=== PATIENT | female | born 1955 | race African-American/Black ===

== ENCOUNTER 2017-09-27 13:37 | Inpatient (IN) | payer MEDICAID ==
[~2017-09-27] VITALS: Ht 160 cm; Wt 76.7 kg
[2017-09-27 13:37] VITALS: BP 112/52
--- NOTE | 2017-09-27 13:54 | Emergency Room Report ---
History of Present Illness General Chief Complaint: Chest Pain Source: Patient Present Illness HPI patient is a 62-year-old female who presents complaining of chest pain for the last week. The pain has been intermittent since 7 days but constant for the last 2 days Pain appears worsewith movement or deep inspiration or pressing on the left side of the chest. . It is associated with shortness of breath and feeling weak especially with ambulation. The patient denies prior cardiac history but states she has been admitted to [facility] for chest pain in the past. Allergies: Coded Allergies: CYCLOBENZAPRINE (Unverified Allergy, Unknown, 09/27/17) MEPERIDINE (Unverified Allergy, Unknown, 09/27/17) PROCHLORPERAZINE (Unverified Allergy, Unknown, 09/27/17) Patient History Past Medical History: see triage record, DM, HTN Pertinent Family History: none Social History: Reports: smoking Last Menstrual Period: n/a Nursing Documentation-PMH Hx Cardiac Problems: Yes - ANGINA Hx Cancer: Yes - Breast Cancer Review of Systems Constitutional: Denies: no symptoms, see HPI, chills, sweats, fever, malaise, weakness, other Eye: Denies: no symptoms, see HPI, eye pain, blurred vision, tearing, double vision, nose pain, nose congestion, acuity changes, discharge, other ENT: Denies: no symptoms, see HPI, ear pain, ear discharge, nose pain, nose congestion, throat pain, throat swelling, mouth pain, hearing loss, nasal discharge, other Respiratory: Reports: see HPI, shortness of breath; Denies: no symptoms, cough , orthopnea, stridor, wheezing, MENDOZA, sputum, other Cardiovascular: Reports: see HPI, chest pain Gastrointestinal: Denies: no symptoms, see HPI, abdominal pain, constipation, diarrhea, nausea, vomiting, melena, hematemesis, other Genitourinary: Denies: no symptoms, see HPI, discharge, dysuria, frequency, hematuria, pain, retention, incontinence, urgency, vag bleed/dc, other Musculoskeletal: Denies: no symptoms, see HPI, back pain, gout, joint pain, joint swelling, muscle pain, muscle stiffness, other Skin: Denies: no symptoms, see HPI, rash, change in color, change in hair/nails , dryness, lesions, other Psychiatric: Denies: no symptoms, see HPI, prior hx, anxiety, depressed feelings, emotional problems, SI, HI, hallucinations, other Neurological: Denies: no symptoms, see HPI, headache, numbness, paresthesia, seizure, tingling, tremors, focal weakness, syncope, dizziness, other Endocrine: Denies: no symptoms, see HPI, excessive sweating, flushing, intolerance to temperature, increased thirst, increased urine, unexplained weight loss, other Physical Exam Vital Signs Date Time Temp Pulse Resp B/P (MAP) Pulse Ox O2 Delivery O2 Flow Rate FiO2 09/27/17 13:24 98.7 70 16 114/62 100 Room Air 98.8 Sp02 EP Interpretation: reviewed, normal General Appearance: no apparent distress, alert, GCS 15, non-toxic Head: normocephalic, atraumatic Eyes: bilateral eye normal inspection, bilateral eye PERRL ENT: hearing grossly normal, normal pharynx, no angioedema, normal voice Neck: full range of motion, supple/symm/no masses Respiratory: chest non-tender, lungs clear, normal breath sounds, speaking full sentences Cardiovascular #1: regular rate, rhythm, no edema Cardiovascular #2: 2+ carotid (R), 2+ carotid (L), 2+ radial (R), 2+ radial (L) , 2+ dorsalis pedis (R), 2+ dorsalis pedis (L) Gastrointestinal: normal bowel sounds, non tender, soft, non-distended, no guarding, no rebound Musculoskeletal: back normal, gait/station normal, normal range of motion, non- tender, calf tenderness Neurologic: alert, oriented x3, responsive, motor strength/tone normal, sensory intact, speech normal Psychiatric: judgement/insight normal, memory normal, mood/affect normal, no suicidal/homicidal ideation Skin: normal color, no rash, warm/dry, well hydrated Medical Decision Making Reaction to Intervention: Improved Diagnostic Impression: Primary Impression: Chest pain with moderate risk of acute coronary syndrome ER Course Patient is a 62-year-old female complaining of chest pain. The patient's workup in the emergency department including EKG, chest x-ray, CT angios chest, laboratory studies are unremarkable however the patient has multiple risk factors for cardiac disease and will require admission to the hospital for cardiac rule out. Laboratory Tests Test 09/27/17 13:46 7/9/18 14:00 White Blood Count 4.5 K/UL (4.8-10.8) L Red Blood Count 3.89 M/UL (4.20-5.40) L Hemoglobin 10.8 G/DL (12.0-16.0) L Hematocrit 34.5 % (37.0-47.0) L Mean Corpuscular Volume 89 FL (80-99) Mean Corpuscular Hemoglobin 27.8 PG (27.0-31.0) Mean Corpuscular Hemoglobin Concent 31.4 G/DL (32.0-36.0) L Red Cell Distribution Width 12.3 % (11.6-14.8) Platelet Count 321 K/UL (150-450) Mean Platelet Volume 5.8 FL (6.5-10.1) L Neutrophils (%) (Auto) 45.6 % (45.0-75.0) Lymphocytes (%) (Auto) 40.1 % (20.0-45.0) Monocytes (%) (Auto) 10.1 % (1.0-10.0) H Eosinophils (%) (Auto) 2.5 % (0.0-3.0) Basophils (%) (Auto) 1.7 % (0.0-2.0) D-Dimer 2.34 mg/L FEU (0.00-0.49) H Sodium Level 143 MMOL/L (136-145) Potassium Level 3.5 MMOL/L (3.5-5.1) Chloride Level 106 MMOL/L (98-107) Carbon Dioxide Level 25 MMOL/L (21-32) Anion Gap 12 mmol/L (5-15) Blood Urea Nitrogen 11 mg/dL (7-18) Creatinine 0.8 MG/DL (0.55-1.30) Estimate Glomerular Filtration Rate > 60 mL/min (>60) Glucose Level 94 MG/DL (74-106) Calcium Level 9.2 MG/DL (8.5-10.1) Total Bilirubin 0.3 MG/DL (0.2-1.0) Aspartate Amino Transferase (AST) 30 U/L (15-37) Alanine Aminotransferase (ALT) 33 U/L (12-78) Alkaline Phosphatase 66 U/L (46-116) Total Creatine Kinase 565 U/L (26-308) H Creatine Kinase MB 2.5 NG/ML (0.0-3.6) Creatine Kinase MB Relative Index 0.4 Troponin I 0.000 ng/mL (0.000-0.056) Total Protein 7.1 G/DL (6.4-8.2) Albumin 3.2 G/DL (3.4-5.0) L Globulin 3.9 g/dL Albumin/Globulin Ratio 0.8 (1.0-2.7) L Lipase 166 U/L (73-393) EKG Diagnostic Results Rhythm: NSR ST Segments: no acute changes Other Impression Nl axis no acute st abnormalities. artifact. EKG repeat at 1341 (#2) shows NSR, rate 67, Nl axis, no acute st/t wave changes Last Vital Signs Date Time Temp Pulse Resp B/P (MAP) Pulse Ox O2 Delivery O2 Flow Rate FiO2 09/27/17 13:24 98.7 70 16 114/62 100 Room Air 98.8 Disposition: ADMITTED INPATIENT Condition: Stable NEHEMIAH GLEASON Sep 27, 2017 13:54
[2017-09-27] MEDS: Nitroglycerin Subl 0.4mg tab SL PRN ×3 (14:00→14:18)
[2017-09-27 14:15] LABS: BASOPHILS % (AUTO) 1.7 % (0.0-2.0); EOSINOPHILS % (AUTO) 2.5 % (0.0-3.0); HEMATOCRIT 34.5 % (37.0-47.0); HEMOGLOBIN 10.8 G/DL (12.0-16.0); LYMPHOCYTES % (AUTO) 40.1 % (20.0-45.0); MEAN CORPUSCULAR VOLUME 89 FL (80-99); MONOCYTES % (AUTO) 10.1 % (1.0-10.0); NEUTROPHILS % (AUTO) 45.6 % (45.0-75.0); PLATELET COUNT 321 K/UL (150-450); RED BLOOD COUNT 3.89 M/UL (4.20-5.40); RED CELL DISTRIBUTION WIDTH 12.3 % (11.6-14.8); WHITE BLOOD COUNT 4.5 K/UL (4.8-10.8)
[2017-09-27 14:46] LABS: ANION GAP 12 mmol/L (5-15); BLOOD UREA NITROGEN 11 mg/dL (7-18); CALCIUM 9.2 MG/DL (8.5-10.1); CARBON DIOXIDE 25 MMOL/L (21-32); CHLORIDE 106 MMOL/L (98-107); CREATININE 0.8 MG/DL (0.55-1.30); POTASSIUM 3.5 MMOL/L (3.5-5.1); SODIUM 143 MMOL/L (136-145)
--- NOTE | 2017-09-27 15:03 | Diagnostic Imaging Report ---
Indication: Chest pain Comparison: None A single view chest radiograph was obtained. Findings: Cardiomediastinal appearance is within normal limits for age. Surgical clips projected over the left chest. Pulmonary vascularity is appropriate. The diaphragmatic contour is smooth and costophrenic angles are sharp. No pleural effusions are identified. The bones are unremarkable. Impression: No acute findings
[2017-09-27] MEDS ORDERED: Morphine Sulfate 4mg/ml Inj ONE (15:10)
[2017-09-27 15:12] LABS: ALANINE AMINOTRANSFERASE 33 U/L (12-78); ALBUMIN 3.2 G/DL (3.4-5.0); ALBUMIN/GLOBULIN RATIO 0.8 (1.0-2.7); ALKALINE PHOSPHATASE 66 U/L (46-116); ASPARTATE AMINO TRANSFERASE 30 U/L (15-37); BILIRUBIN,TOTAL 0.3 MG/DL (0.2-1.0); CKMB 2.5 NG/ML (0.0-3.6); CREATINE KINASE 565 U/L (26-308)
[2017-09-27 15:42] VITALS: BP 109/59
[2017-09-27] MEDS ORDERED: Morphine Sulfate 4mg/ml Inj IVP ONE ×2 (15:45→17:15)
[2017-09-27] MEDS ORDERED: Isovue-370 150ml vial INJ PRN (16:15)
[2017-09-27 17:10] VITALS: BP 104/55
[2017-09-27 20:00] VITALS: BP 111/51
[2017-09-27] MEDS ORDERED: SEROQUEL300 MG ORAL (20:53)
[2017-09-27] MEDS ORDERED: Nitroglycerin Subl 0.4mg tab SL PRN (21:45)
[2017-09-27] MEDS ORDERED: Heparin 5000 units/ml inj SUBQ SCH (22:00)
[2017-09-27] MEDS ORDERED: Lexiscan 0.4mg/5ml syringe IV ONE (22:00)
[2017-09-28] VITALS: BP 115/56
--- NOTE | 2017-09-28 03:45 | History and Physical Report ---
DATE OF ADMISSION: 09/27/2017 CHIEF COMPLAINT/REASON FOR HOSPITALIZATION: The patient is admitted for chest pain, leg pain, generalized malaise. HISTORY OF PRESENT ILLNESS: The patient has a history of breast cancer status post left-sided lumpectomy in November 2014 or 2015 followed by radiation and hormonal therapy. There is a history of apparently psychiatric problem, questionable CVA, and prior hospitalization at [facility] for chest pain, but she had no angiography at that time. The patient states her left leg gets stiff and numb. She has chest pain and some left axilla pain. She is a poor historian. PAST SURGICAL HISTORY: Prior surgery includes breast lumpectomy, liver laceration in 1996, left tibia in 2002 with left arm laceration, and tonsillectomy. HABITS: She smokes cigarettes less than half a pack a day. Alcohol occasional. Drugs none. ALLERGIES: She states she is allergic to Compazine, Geodon, Flagyl, Flexeril, Abilify, . PAST MEDICAL HISTORY: She was told she had a CVA with distorted mouth in the past. CURRENT MEDICATIONS: The patient cannot give an adequate list, but they do include apparently some psychotropic medications. SYSTEM REVIEW: HEENT: The patient's hearing is good. ENDOCRINE: Apparently, there is a history of diabetes. No known thyroid disease. PULMONARY: No chronic cough or asthma. She is an active smoker. CARDIAC: See history of present illness. GASTROINTESTINAL: There is some gastritis. No hematochezia or melena. GENITOURINARY: No dysuria or hematuria. NEUROLOGIC: History of a prior CVA according to the patient. PHYSICAL EXAMINATION: GENERAL: The patient is alert lady, in no acute distress. VITAL SIGNS: BMI is 23, temperature 98.7, pulse 59, respirations of 18, and blood pressure 104/55. HEENT: Sclerae are nonicteric. Ocular motions intact in all directions. Oral mucosa moist. NECK: No adenopathy or thyroid enlargement. LUNGS: Clear. HEART: Regular rate and rhythm. ABDOMEN: Soft without organomegaly or masses. EXTREMITIES: No edema, cyanosis, or clubbing. NEUROLOGIC: She is alert and oriented with clear speech. Ocular motions are intact in all directions. Smile symmetric. Tongue is midline. She moves all extremities. PERTINENT LABORATORY DATA: Troponin of 0, total CK of 565. Electrolytes normal except for potassium of 3.5, hemoglobin is 10.8. IMPRESSION: 1. Chest pain, atypical. 2. History of breast cancer. I did a breast exam and axillary exam negative. 3. Left leg stiffness and numbness. 4. History of prior stroke. 5. Anemia. 6. History of taking psychotropic medications. PLAN: We will put her on anti-ischemic regimen. Try to get records of her prior medications. Get serial laboratory work to assess all of the above problems and make further recommendations after data is available. Buzz Arevalo M.D. DR: TAI JOB#: [id number] CC:
[2017-09-28 04:00] VITALS: BP 110/62
[2017-09-28 04:53] LABS: BASOPHILS % (AUTO) 1.1 % (0.0-2.0); EOSINOPHILS % (AUTO) 3.1 % (0.0-3.0); HEMATOCRIT 30.6 % (37.0-47.0); HEMOGLOBIN 9.9 G/DL (12.0-16.0); LYMPHOCYTES % (AUTO) 47.5 % (20.0-45.0); MEAN CORPUSCULAR VOLUME 90 FL (80-99); MONOCYTES % (AUTO) 10.4 % (1.0-10.0); NEUTROPHILS % (AUTO) 37.8 % (45.0-75.0); PLATELET COUNT 285 K/UL (150-450); RED BLOOD COUNT 3.41 M/UL (4.20-5.40); RED CELL DISTRIBUTION WIDTH 12.5 % (11.6-14.8); WHITE BLOOD COUNT 3.7 K/UL (4.8-10.8)
[2017-09-28 05:22] LABS: ALANINE AMINOTRANSFERASE 33 U/L (12-78); ALBUMIN 2.9 G/DL (3.4-5.0); ALBUMIN/GLOBULIN RATIO 0.8 (1.0-2.7); ALKALINE PHOSPHATASE 58 U/L (46-116); ANION GAP 8 mmol/L (5-15); ASPARTATE AMINO TRANSFERASE 20 U/L (15-37); BILIRUBIN,TOTAL 0.2 MG/DL (0.2-1.0); BLOOD UREA NITROGEN 14 mg/dL (7-18); CARBON DIOXIDE 29 MMOL/L (21-32); CHLORIDE 106 MMOL/L (98-107); CREATININE 0.8 MG/DL (0.55-1.30); POTASSIUM 3.9 MMOL/L (3.5-5.1); SODIUM 143 MMOL/L (136-145)
[2017-09-28] MEDS: HydrALAZINE 25mg tab ORAL SCH ×4 (05:44→16:48)
[2017-09-28 08:00] VITALS: BP 121/61
[2017-09-28] MEDS: Heparin 5000 units/ml inj SUBQ SCH ×2 (08:15→21:00)
--- NOTE | 2017-09-28 08:53 | Diagnostic Imaging Report ---
Indication: Chest pain, shortness of breath Technique: CT pulmonary angiogram performed utilizing automated exposure control with intravenous contrast. Axial, sagittal and coronal reconstructions were obtained. 3-D volumetric reconstructions were also performed. CT dose: Total DLP 788.41 mGycm; CTDI vol 23.9 mGy Comparison: None Findings: There is adequate opacification of the pulmonary arteries.. No evidence of pulmonary embolism. Main pulmonary artery normal in caliber. Limited evaluation of the ascending aorta due to cardiac motion however grossly unremarkable. No evidence of thoracic aortic aneurysm or definite evidence of aortic dissection. Visualized portions of the abdominal aorta are normal in caliber. Heart is mildly enlarged. No pericardial effusion. No pathologically enlarged mediastinal adenopathy. Thyroid unremarkable. There is mild atelectasis at the dependent aspects of the lungs. Mild linear atelectasis versus scarring noted in the middle lobe. There is no pleural effusion or pneumothorax. No focal consolidation to suggest pneumonia. There are multilevel degenerative changes of the spine. No acute osseous abnormality is seen. There is asymmetry of the breast tissues with multiple clips in the left breast. Correlate with surgical history. No definite mass lesion within the breasts is appreciated on CT. There is a small hiatal hernia. Imaged upper abdomen grossly unremarkable. IMPRESSION: * No evidence for pulmonary embolism. * Evaluation of the ascending aorta limited due to motion artifact. Within this limitation, aorta is grossly unremarkable. * Mild cardiomegaly. * Small hiatal hernia. * Mild dependent atelectasis in the lung bases and linear scarring or atelectasis in the middle lobe. * Asymmetry of the breast tissues with multiple clips noted in the left breast without definite mass appreciated on CT. Correlation with surgical history and most recent mammogram recommended. This corresponds with the statrad preliminary report, with minor discrepancy. Study obtained via the emergency department however patient admitted to the hospital at time of dictation of the final report. The CT scanner at [facility] is accredited by the [employer] and the scans are performed using protocols designed to limit radiation exposure to as low as reasonably achievable to attain images of sufficient resolution adequate for diagnostic evaluation.
[2017-09-28] MEDS ORDERED: Aspirin Baby 81mg ORAL SCH (09:00)
[2017-09-28] MEDS ORDERED: QUEtiapine 200mg tab ORAL SCH (09:00)
[2017-09-28 12:00] VITALS: BP 115/49
--- NOTE | 2017-09-28 12:27 | General Progress Note ---
Assessment/Plan Problem List: (1) Bipolar 1 disorder ICD Codes: F31.9 - Bipolar disorder, unspecified SNOMED: 181448699 (2) anemia (3) Chest pain with moderate risk of acute coronary syndrome ICD Codes: R07.9 - Chest pain, unspecified SNOMED: 30316692 Assessment/Plan stress test, dc if neg Subjective Constitutional: Reports: weakness HEENT: Reports: no symptoms Cardiovascular: Reports: no symptoms Respiratory: Reports: no symptoms Gastrointestinal/Abdominal: Reports: no symptoms Genitourinary: Reports: no symptoms Neurologic/Psychiatric: Reports: headache Endocrine: Reports: no symptoms Hematologic/Lymphatic: Reports: no symptoms Allergies: Coded Allergies: CYCLOBENZAPRINE (Unverified Allergy, Unknown, 09/27/17) MEPERIDINE (Unverified Allergy, Unknown, 09/27/17) PROCHLORPERAZINE (Unverified Allergy, Unknown, 09/27/17) Objective Last 24 Hour Vital Signs Date Time Temp Pulse Resp B/P (MAP) Pulse Ox O2 Delivery O2 Flow Rate FiO2 09/28/17 12:00 97.9 56 21 115/49 (71) 96 97.9 09/28/17 12:00 135/78 09/28/17 09:10 98.0 09/28/17 09:00 Room Air 09/28/17 08:00 58 09/28/17 08:00 98.0 54 21 121/61 (81) 96 98.0 09/28/17 05:44 110/62 09/28/17 04:00 97.7 53 16 110/62 (78) 96 97.7 09/28/17 04:00 48 09/28/17 01:42 Room Air 09/28/17 00:00 97.5 59 16 115/56 (75) 96 97.5 09/28/17 00:00 115/56 09/28/17 00:00 48 09/27/17 20:00 97.7 56 17 111/51 (71) 97 97.7 09/27/17 19:15 98.2 58 20 106/59 97 Room Air 209.7 09/27/17 17:18 98.7 09/27/17 17:10 98.5 59 18 104/55 98 Room Air 98.5 09/27/17 16:08 98.7 09/27/17 16:08 98.7 7/9/18 15:42 98.7 58 21 109/59 95 Room Air 98.7 09/27/17 15:38 98.8 09/27/17 14:18 103/49 09/27/17 14:07 112/52 09/27/17 14:00 114/62 09/27/17 13:37 70 16 Room Air 09/27/17 13:37 98.8 66 22 112/52 100 Room Air 98.8 09/27/17 13:24 98.7 70 16 114/62 100 Room Air 98.8 Intake and Output 09/27/17 09/28/17 19:00 07:00 Intake Total 0 ml Balance 0 ml Intake Oral 0 ml # Voids 2 Laboratory Tests 09/27/17 13:46: White Blood Count 4.5L, Red Blood Count 3.89L, Hemoglobin 10.8L, Hematocrit 34.5L, Mean Corpuscular Volume 89, Mean Corpuscular Hemoglobin 27.8, Mean Corpuscular Hemoglobin Concent 31.4L, Red Cell Distribution Width 12.3, Platelet Count 321, Mean Platelet Volume 5.8L, Neutrophils (%) (Auto) 45.6, Lymphocytes (%) (Auto) 40.1, Monocytes (%) (Auto) 10.1H, Eosinophils (%) (Auto) 2.5, Basophils (%) (Auto) 1.7 09/27/17 14:00: D-Dimer 2.34H, Sodium Level 143, Potassium Level 3.5, Chloride Level 106, Carbon Dioxide Level 25, Anion Gap 12, Blood Urea Nitrogen 11, Creatinine 0.8, Estimat Glomerular Filtration Rate > 60, Glucose Level 94, Calcium Level 9.2, Total Bilirubin 0.3, Aspartate Amino Transf (AST/SGOT) 30, Alanine Aminotransferase (ALT/SGPT) 33, Alkaline Phosphatase 66, Total Creatine Kinase 565H, Creatine Kinase MB 2.5, Creatine Kinase MB Relative Index 0.4, Troponin I 0.000, Total Protein 7.1, Albumin 3.2L, Globulin 3.9, Albumin/Globulin Ratio 0.8L, Lipase 166 09/28/17 04:10: White Blood Count 3.7L, Red Blood Count 3.41L, Hemoglobin 9.9L, Hematocrit 30.6L , Mean Corpuscular Volume 90, Mean Corpuscular Hemoglobin 29.1, Mean Corpuscular Hemoglobin Concent 32.5, Red Cell Distribution Width 12.5, Platelet Count 285, Mean Platelet Volume 6.0L, Neutrophils (%) (Auto) 37.8L, Lymphocytes (%) (Auto) 47.5H, Monocytes (%) (Auto) 10.4H, Eosinophils (%) (Auto) 3.1H, Basophils (%) (Auto) 1.1, Sodium Level 143, Potassium Level 3.9, Chloride Level 106, Carbon Dioxide Level 29, Anion Gap 8, Blood Urea Nitrogen 14, Creatinine 0.8, Estimat Glomerular Filtration Rate > 60, Glucose Level 100, Calcium Level 9.0, Total Bilirubin 0.2, Aspartate Amino Transf (AST/SGOT) 20, Alanine Aminotransferase (ALT/SGPT) 33, Alkaline Phosphatase 58, Troponin I 0.000, Total Protein 6.4, Albumin 2.9L, Globulin 3.5, Albumin/Globulin Ratio 0.8L, Thyroid Stimulating Hormone (TSH) 1.006 Height (Feet): 5 Height (Inches): 3.00 Weight (Pounds): 169 General Appearance: WD/WN, no apparent distress EENT: normal ENT inspection Neck: non-tender Cardiovascular: normal rate Respiratory/Chest: lungs clear Abdomen: non tender Edema: no edema noted Arm (L), no edema noted Arm (R), no edema noted Leg (L), no edema noted Leg (R), no edema noted Pedal (L), no edema noted Pedal (R), no edema noted Generalized ARETHA BANKS Sep 28, 2017 12:27
--- NOTE | 2017-09-28 14:11 | Cardiology Report ---
APPROVED REPORT EKG Measurement Heart [id number] Normal sinus rhythm with sinus arrhythmia Nonspecific ST and T wave abnormality Abnormal ECG
[2017-09-28 16:00] VITALS: BP 106/52
--- NOTE | 2017-09-28 16:03 | Diagnostic Imaging Report ---
Indications: Chest pain Technique: See cardiology report for details of LexiScan stress testing. During LexiScan infusion, IV administration 31.9 mCi 99 M technetium Myoview. SPECT and planar images obtained. SPECT images gated to 8 phases of the cardiac cycle were also obtained, and reformatted into cine images for evaluation of ejection fraction. Subsequently, resting images obtained using IV administration 10.6 mCi 99 M technetium Myoview. Comparison:none Findings: Baseline heart rate: 50 bpm. End infusion heart rate: 63 bpm. Baseline blood pressure: 125/69. End infusion blood pressure: 128/72. Infusion duration: 10 seconds Symptoms: Headache, nausea, flushing, chest pain, tingling the left side. Maximum ST change: None. Clinical response to pharmacologic stress: Nondiagnostic. Electrocardiographic response to pharmacologic stress: Nonischemic. Myocardial perfusion imaging demonstrates no fixed or reversible perfusion defect. Ejection fraction of approximately 67%. IMPRESSION: No fixed or reversible perfusion defect. Ejection fraction of approximately 67%.
[2017-09-28 16:48] VITALS: BP 133/62
[2017-09-28] MEDS ORDERED: Atorvastatin 80mg tab ORAL SCH (21:00)
--- NOTE | 2017-09-29 16:26 | Cardiology Report ---
APPROVED REPORT EKG Measurement Heart [id number] [place] [id number] [id number] Sinus bradycardia with sinus arrhythmia Otherwise normal ECG
--- NOTE | 2017-09-30 09:56 | Discharge Summary ---
Discharge Summary Discharge Summary _ DATE OF ADMISSION: 09/27/2017 DATE OF DISCHARGE: 09/28/2017 REASON FOR ADMISSION: 62 years old female with history of breast cancer, status post left-sided lumpectomy, followed by radiation and hormonal therapy, questionable history of CVA, psychiatric disease, prior hospitalization at [facility] for chest pain without angiography at that time, presented with complaint of chest pain and left axilla pain. In addition, patient reported left leg stiffness and numbness . Upon evaluation vital signs were stable. Troponin was negative. Total CK 565. Electrolytes stable except potassium 3.5 Hemoglobin 10.8, hematocrit 34.5 D-dimer elevated -2.34. Chest x-ray was negative for acute cardiopulmonary pathology. EKG revealed normal sinus rhythm with sinus arrhythmia and nonspecific ST changes. CTA of the chest was done due to elevated D-dimer and revealed no evidence of pulmonary emboli. Patient was admitted with diagnosis of atypical chest pain, history of breast CVA, left leg stiffness and numbness, questionable history of CVA, anemia, history of taking psychotropic medications. HOSPITAL COURSE: Patient admitted to telemetry floor. Patient started on antiplatelet regimen with Aspirin. Nitroglycerin was on board as needed. Pain management was addressed. Serial troponin were negative. Repeated EKG showed sinus bradycardia with sinus arrhythmia otherwise was within normal limits. Patient undergone stress test which revealed no fixed or reversible perfusion defect, calculated ejection fraction 67%. Breast and axillary exam was negative. Bowel regimen instituted. Supportive care provided. Hemoglobin and hematocrit were closely monitored with goal to keep hemoglobin above 7 DVT and GI prophylaxis provided. Blood pressure was managed with hydralazine. Patient was stable for discharge home. Due to the rapid and unexpected improvement in patient's condition the patient was discharged in one day FINAL DIAGNOSES: Atypical chest pain Chest pain with moderate risk for acute coronary syndrome Bipolar disorder Anemia DISCHARGE MEDICATIONS: See Medication Reconciliation list. DISCHARGE INSTRUCTIONS: Patient was discharged home. Follow up with the primary care provider. I have been assigned to dictate discharge summary for this account. I was not involved in the patient's management. Rafia Chavez NP Sep 30, 2017 09:56
--- NOTE | 2017-10-01 02:47 | Discharge Summary ---
DATE OF ADMISSION: 09/27/2017 DATE OF DISCHARGE: 09/28/2017 PERTINENT HISTORY: The patient has a history of breast cancer without recurrence, psychiatric problems, questionable CVA, and prior hospitalizations for chest pain. She complained of chest pain, leg stiffness, and generalized malaise. PERTINENT PHYSICAL FINDINGS: LUNGS: Clear. HEART: Regular rhythm. BREASTS: No masses. EXTREMITIES: No edema, cyanosis, or clubbing. NEUROLOGIC: No focal weakness. COURSE IN THE HOSPITAL: The patient was observed for the chest pain. Troponins remained negative. She had a negative nuclear medicine stress test and she was discharged home in stable condition. FINAL DIAGNOSES: 1. Chest pain, myocardial infarction and ischemia ruled out, atypical. 2. History of breast cancer without recurrence. 3. Leg stiffness and numbness, nonspecific, could be followed as an outpatient. 4. History of prior stroke per patient history. 5. History of anemia. 6. History of taking psychotropic medications. DISCHARGE DISPOSITION: She is discharged home on her prior to admission medications. FOLLOWUP: Follow up with her primary care physician. Buzz Arevalo M.D. DR: MOHIT JOB#: [id number] CC:
== END 2017-09-28 20:45 | disposition home or self-care (01) | DRG 203 ==
LOC: EDBD 13:37 → EMR 14:43 → 2E 14:52 → EDBEDREQ 18:17 → UNDODISIN 19:01
DX: R07.89 Other chest pain (principal); D64.9 Anemia, unspecified; F31.9 Bipolar disorder, unspecified; E11.9 Type 2 diabetes mellitus without complications; F17.200 Nicotine dependence, unspecified, uncomplicated; I10 Essential (primary) hypertension; Z88.8 Allergy status to other drugs, medicaments and biological substances; Z85.3 Personal history of malignant neoplasm of breast; Z92.3 Personal history of irradiation; Z86.73 Personal history of transient ischemic attack (TIA), and cerebral infarction without residual deficits; R20.0 Anesthesia of skin
CPT/HCPCS: 36415; 71045; 71275; 78452; 80053; 82550; 82553; 83690; 84443; 84484; 85025; 85379; 93005; 93017; 99285; J2405; J2785

== ENCOUNTER 2017-10-08 16:05 | Inpatient (IN) | payer MEDICAID ==
[~2017-10-08] VITALS: Ht 160 cm; Wt 59.0 kg
[~2017-10-08 16:05] MED LIST: SEROQUEL300 MG ORAL
--- NOTE | 2017-10-08 16:10 | Emergency Room Report ---
History of Present Illness General Chief Complaint: Chest Pain Source: Patient, EMS Present Illness HPI Patient is a 62-year-old female who presented after increased discomfort. Patient was having increased chest pain earlier in the day. Patient had prior history of symptoms and had recent cardiac workup. Patient was noted to have a negative stress nuclear study. She was also noted to have a negative CTA of her chest. The patient was also noted to have a hiatal hernia. She reports having increased sharp pain. It seems to be worse with palpation. She reports having prior history of breast cancer with left-sided mastectomy. Allergies: Coded Allergies: CYCLOBENZAPRINE (Unverified Allergy, Unknown, 09/27/17) MEPERIDINE (Unverified Allergy, Unknown, 09/27/17) PROCHLORPERAZINE (Unverified Allergy, Unknown, 09/27/17) Patient History Past Medical History: see triage record Reviewed Nursing Documentation: PMH: Agreed; PSxH: Agreed Nursing Documentation-PMH Hx Cancer: Yes Hx Gastrointestinal Problems: No Hx Cerebrovascular Accident: Yes Review of Systems All Other Systems: negative except mentioned in HPI Physical Exam Vital Signs Date Time Temp Pulse Resp B/P (MAP) Pulse Ox O2 Delivery O2 Flow Rate FiO2 10/08/17 16:01 98.1 68 18 120/56 100 Room Air 98.1 Sp02 EP Interpretation: reviewed, normal General Appearance: normal inspection, well appearing, no apparent distress, alert, GCS 15 Head: atraumatic ENT: normal ENT inspection, hearing grossly normal, normal voice Neck: normal inspection, full range of motion, supple, no bony tend Respiratory: normal inspection, lungs clear, normal breath sounds, no respiratory distress, no retraction, no wheezing Cardiovascular #1: regular rate, rhythm, no edema Gastrointestinal: normal inspection, normal bowel sounds, non tender, soft, no guarding, no hernia Genitourinary: no CVA tenderness Musculoskeletal: normal inspection, back normal, normal range of motion Neurologic: normal inspection, alert, oriented x3, responsive, 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 Because of complexity of patient's case laboratory testing and imaging studies were ordered.The patient be given aspirin by EMS. The patient was noted to have recent imaging which showed negative patient was given IV fluids as well as IV pain medications. CT abdomen pelvis read by radiology showed unremarkable gallbladder and bile ducts pancreas is unremarkable with no dilation.Dr. Mauricio Hawkins was contacted for inpatient management due to panel physician. Labs Test 10/08/17 18:18 White Blood Count 6.0 K/UL (4.8-10.8) Red Blood Count 3.61 M/UL (4.20-5.40) Hemoglobin 10.1 G/DL (12.0-16.0) Hematocrit 31.8 % (37.0-47.0) Mean Corpuscular Volume 88 FL (80-99) Mean Corpuscular Hemoglobin 28.1 PG (27.0-31.0) Mean Corpuscular Hemoglobin Concent 31.9 G/DL (32.0-36.0) Red Cell Distribution Width 12.3 % (11.6-14.8) Platelet Count 212 K/UL (150-450) Mean Platelet Volume 6.4 FL (6.5-10.1) Neutrophils (%) (Auto) 58.6 % (45.0-75.0) Lymphocytes (%) (Auto) 29.1 % (20.0-45.0) Monocytes (%) (Auto) 9.8 % (1.0-10.0) Eosinophils (%) (Auto) 0.7 % (0.0-3.0) Basophils (%) (Auto) 1.8 % (0.0-2.0) Sodium Level 145 MMOL/L (136-145) Potassium Level 3.8 MMOL/L (3.5-5.1) Chloride Level 109 MMOL/L (98-107) Carbon Dioxide Level 26 MMOL/L (21-32) Anion Gap 10 mmol/L (5-15) Blood Urea Nitrogen 14 mg/dL (7-18) Creatinine 0.8 MG/DL (0.55-1.30) Estimat Glomerular Filtration Rate > 60 mL/min (>60) Glucose Level 94 MG/DL (74-106) Calcium Level 9.1 MG/DL (8.5-10.1) Total Bilirubin 0.2 MG/DL (0.2-1.0) Aspartate Amino Transf (AST/SGOT) 14 U/L (15-37) Alanine Aminotransferase (ALT/SGPT) 35 U/L (12-78) Alkaline Phosphatase 64 U/L (46-116) Total Creatine Kinase 559 U/L (26-308) Creatine Kinase MB 1.9 NG/ML (0.0-3.6) Creatine Kinase MB Relative Index 0.3 Troponin I 0.000 ng/mL (0.000-0.056) Total Protein 6.9 G/DL (6.4-8.2) Albumin 3.5 G/DL (3.4-5.0) Globulin 3.4 g/dL Albumin/Globulin Ratio 1.0 (1.0-2.7) Lipase 648 U/L (73-393) EKG Diagnostic Results Rate: normal Rhythm: NSR - 60 ST Segments: no acute changes Last Vital Signs Date Time Temp Pulse Resp B/P (MAP) Pulse Ox O2 Delivery O2 Flow Rate FiO2 10/08/17 16:01 98.1 68 18 120/56 100 Room Air 98.1 Status: improved Disposition: ADMITTED INPATIENT Condition: Serious Moody Amador MD Oct 08, 2017 16:10
[2017-10-08] MEDS ORDERED: Ketorolac 30mg Inj IV ONE (16:30)
[2017-10-08 18:00] VITALS: BP 111/66
--- NOTE | 2017-10-08 18:24 | Diagnostic Imaging Report ---
EXAM: XR Chest, 1 View CLINICAL HISTORY: CP TECHNIQUE: Frontal view of the chest. COMPARISON: No relevant prior studies available. FINDINGS: Lungs: Unremarkable. No consolidation. Pleural space: Unremarkable. No pneumothorax. Heart: Unremarkable. No cardiomegaly. Mediastinum: Unremarkable. Bones/joints: Postoperative changes of the left chest wall. IMPRESSION: No evidence of acute pulmonary disease
[2017-10-08] MEDS ORDERED: Norco 5mg/325mg tab ORAL ONE (18:30)
[2017-10-08 18:32] LABS: BASOPHILS % (AUTO) 1.8 % (0.0-2.0); EOSINOPHILS % (AUTO) 0.7 % (0.0-3.0); HEMATOCRIT 31.8 % (37.0-47.0); HEMOGLOBIN 10.1 G/DL (12.0-16.0); LYMPHOCYTES % (AUTO) 29.1 % (20.0-45.0); MEAN CORPUSCULAR VOLUME 88 FL (80-99); MONOCYTES % (AUTO) 9.8 % (1.0-10.0); NEUTROPHILS % (AUTO) 58.6 % (45.0-75.0); PLATELET COUNT 212 K/UL (150-450); RED BLOOD COUNT 3.61 M/UL (4.20-5.40); RED CELL DISTRIBUTION WIDTH 12.3 % (11.6-14.8)
[2017-10-08 18:44] LABS: ANION GAP 10 mmol/L (5-15); BLOOD UREA NITROGEN 14 mg/dL (7-18); CALCIUM 9.1 MG/DL (8.5-10.1); CARBON DIOXIDE 26 MMOL/L (21-32); CHLORIDE 109 MMOL/L (98-107); CREATININE 0.8 MG/DL (0.55-1.30); POTASSIUM 3.8 MMOL/L (3.5-5.1); SODIUM 145 MMOL/L (136-145)
[2017-10-08 18:51] LABS: ALANINE AMINOTRANSFERASE 35 U/L (12-78); ALBUMIN 3.5 G/DL (3.4-5.0); ALKALINE PHOSPHATASE 64 U/L (46-116); ASPARTATE AMINO TRANSFERASE 14 U/L (15-37); BILIRUBIN,TOTAL 0.2 MG/DL (0.2-1.0); CKMB 1.9 NG/ML (0.0-3.6); CREATINE KINASE 559 U/L (26-308)
[2017-10-08 19:46] VITALS: BP 110/64
[2017-10-08 21:03] VITALS: BP 112/60
--- NOTE | 2017-10-08 21:09 | Diagnostic Imaging Report ---
EXAM: CT Abdomen and Pelvis With Intravenous Contrast CLINICAL HISTORY: PAIN TECHNIQUE: Axial computed tomography images of the abdomen and pelvis with intravenous contrast. CTDI is 14.56 mGy and DLP is 758 mGy-cm One or more of the following dose reduction techniques were used: automated exposure control, adjustment of the mA and/or kV according to patient size, use of iterative reconstruction technique. COMPARISON: Chest CT of 09/27/17. FINDINGS: Lung bases: Unremarkable. No mass. No consolidation. ABDOMEN: Liver: Unremarkable. No mass. Gallbladder and bile ducts: Unremarkable. No calcified stones. No ductal dilation. Pancreas: Unremarkable. No mass. No ductal dilation. Spleen: Unremarkable. No splenomegaly. Adrenals: Unremarkable. No mass. Kidneys and ureters: 1.2 cm upper pole left renal cyst. No hydronephrosis. Stomach and bowel: Unremarkable. No obstruction. No mucosal thickening. PELVIS: Appendix: Unremarkable appendix. Bladder: There is a periurethral cyst containing a 1.2 cm calculus. ABDOMEN and PELVIS: Intraperitoneal space: Unremarkable. No free air. No significant fluid collection. Bones/joints: No acute fracture. No dislocation. Soft tissues: Small fatty ventral hernias. No herniation of bowel.. Vasculature: Aortic iliac atherosclerosis. No abdominal aortic aneurysm. IMPRESSION: No GI or urinary tract obstruction. Periurethral cyst containing a 1.3 cm calculus. Unremarkable appendix. Incidental findings as detailed above.
[2017-10-08] MEDS ORDERED: Morphine Sulfate 4mg/ml Inj IVP ONE (21:30)
[2017-10-08 21:40] VITALS: BP 128/69
[2017-10-08 22:57] VITALS: BP 124/68
[2017-10-09] VITALS: BP 126/62
[2017-10-09] MEDS ORDERED: Morphine Sulfate 2mg/ml Inj IVP PRN (00:45)
[2017-10-09] MEDS ORDERED: Morphine Sulfate 4mg/ml Inj IVP PRN (00:45)
[2017-10-09] MEDS ORDERED: Norco 5mg/325mg tab ORAL PRN (00:45)
[2017-10-09] MEDS ORDERED: Milk of Magnesia 30ml Ud ORAL PRN ×2 (00:45→15:00)
[2017-10-09] MEDS ORDERED: Zolpidem 5mg tab ORAL PRN ×2 (00:45→15:00)
[2017-10-09] MEDS: Norco 5mg/325mg tab ORAL PRN ×6 (02:42→23:35)
[2017-10-09 04:00] VITALS: BP 110/61
[2017-10-09] MEDS ORDERED: Nitroglycerin 2% oint pkt TOPIC SCH (06:00)
[2017-10-09 08:00] VITALS: BP 106/64
[2017-10-09 08:19] LABS: BASOPHILS % (AUTO) 1.4 % (0.0-2.0); EOSINOPHILS % (AUTO) 2.4 % (0.0-3.0); HEMOGLOBIN 9.7 G/DL (12.0-16.0); LYMPHOCYTES % (AUTO) 45.9 % (20.0-45.0); MEAN CORPUSCULAR VOLUME 89 FL (80-99); MONOCYTES % (AUTO) 13.4 % (1.0-10.0); PLATELET COUNT 168 K/UL (150-450); RED BLOOD COUNT 3.37 M/UL (4.20-5.40); RED CELL DISTRIBUTION WIDTH 12.5 % (11.6-14.8); WHITE BLOOD COUNT 3.9 K/UL (4.8-10.8)
[2017-10-09 08:50] LABS: AMYLASE 110 U/L (25-115); ANION GAP 6 mmol/L (5-15); BLOOD UREA NITROGEN 9 mg/dL (7-18); CALCIUM 8.6 MG/DL (8.5-10.1); CARBON DIOXIDE 28 MMOL/L (21-32); CHLORIDE 111 MMOL/L (98-107); CREATININE 0.7 MG/DL (0.55-1.30); POTASSIUM 3.9 MMOL/L (3.5-5.1); SODIUM 145 MMOL/L (136-145)
[2017-10-09] MEDS ORDERED: Aspirin Baby 81mg ORAL SCH (09:00)
[2017-10-09] MEDS ORDERED: Heparin 5000 units/ml inj SUBQ SCH (09:00)
[2017-10-09] MEDS ORDERED: Atenolol 25mg tab ORAL SCH (09:00)
[2017-10-09 12:57] VITALS: BP 124/42
[2017-10-09 15:29] VITALS: BP 124/64
--- NOTE | 2017-10-09 16:14 | History and Physical Report ---
DATE OF ADMISSION: 10/08/2017 REASON FOR ADMISSION: Pancreatitis. HISTORY OF PRESENT ILLNESS: This is a 62-year-old female, who presents with abdominal discomfort. The patient has left chest discomfort from breast surgery. The patient has had no other symptoms. No nausea or vomiting. The patient was previously admitted, had a negative nuclear stress test. Also had negative CTA of the chest. The patient now admitted. She is actually comfortable at present. No prior history of pancreatitis. No history of alcohol. PAST MEDICAL HISTORY: Notable for breast cancer, questionable history of CVA. MEDICATIONS: Reviewed. ALLERGIES: Reviewed. SOCIAL HISTORY: Denies significant drinking history. PHYSICAL EXAMINATION: GENERAL: A well-developed female, very comfortable without significant distress. VITAL SIGNS: Blood pressure 110/61, temperature 97.9 degrees, and respirations 22. HEENT: Negative. NECK: Supple. LUNGS: Clear and symmetric. CARDIAC: Normal S1 and S2. Regular rate and rhythm. ABDOMEN: Soft, nontender, and nondistended. EXTREMITIES: No cyanosis or clubbing. No edema. NEUROLOGIC: Grossly nonfocal. LABORATORY DATA: Reviewed. IMPRESSIONS: 1. Pancreatitis, now improved. 2. Negative CT abdomen. 3. Left chest discomfort due to history of breast surgery. RECOMMENDATION: 1. [place] diet. 2. IV hydration and if stable, we will proceed with discharge to home. The patient appears to be otherwise stable for discharge planning. Mauricio Hawkins M.D. DR: Christofer JOB#: [id number] CC:
[2017-10-09 20:00] VITALS: BP 155/75
[2017-10-09] MEDS: Heparin 5000 units/ml inj SUBQ SCH (20:22)
[2017-10-10] VITALS: BP 136/67
[2017-10-10] MEDS: Norco 5mg/325mg tab ORAL PRN ×3 (03:32→11:52)
[2017-10-10 04:00] VITALS: BP 144/77
[2017-10-10 07:48] VITALS: BP 114/62
[2017-10-10] MEDS: Heparin 5000 units/ml inj SUBQ SCH (08:49)
[2017-10-10] MEDS ORDERED: Aspirin Baby 81mg ORAL SCH (09:00)
--- NOTE | 2017-10-10 09:43 | General Progress Note ---
Assessment/Plan Assessment/Plan 1. Pancreatitis, now improved. 2. Negative CT abdomen. 3. Left chest discomfort due to history of breast surgery. PLAN dc planning clear liquid x 72 hours after dc zofran prn monitor for change return to er if symptoms recur stable for dc follow up with PMD for further follow up and referrals Subjective Allergies: Coded Allergies: CYCLOBENZAPRINE (Unverified Allergy, Unknown, 09/27/17) MEPERIDINE (Unverified Allergy, Unknown, 09/27/17) PROCHLORPERAZINE (Unverified Allergy, Unknown, 09/27/17) Subjective mild nausea dc held Objective Last 24 Hour Vital Signs Date Time Temp Pulse Resp B/P (MAP) Pulse Ox O2 Delivery O2 Flow Rate FiO2 10/10/17 07:48 97.9 51 20 114/62 (79) 99 97.9 10/10/17 04:00 97.7 50 19 144/77 (99) 97 97.7 10/10/17 00:00 97.7 51 18 136/67 (90) 96 97.7 10/09/17 21:00 Room Air 10/09/17 20:00 97.9 50 20 155/75 (101) 95 97.9 10/09/17 15:29 98.1 56 18 124/64 (84) 97 98.1 10/09/17 12:57 51 20 124/42 (69) 99 10/09/17 11:51 45 10/09/17 11:30 97.3 10/09/17 10:31 97.3 Intake and Output 10/09/17 10/10/17 19:00 07:00 Intake Total 880 ml 1460 ml Balance 880 ml 1460 ml Intake Oral 480 ml 360 ml IV Total 400 ml 1100 ml # Voids 1 5 Laboratory Tests 10/09/17 12:30: Troponin I 0.000 10/09/17 20:20: Troponin I 0.000 10/10/17 06:23: Troponin I 0.002 Height (Feet): 5 Height (Inches): 3.00 Weight (Pounds): 130 Objective WDWN NAD clear breath sounds bilaterally without rhonchi or wheeze [id number] without MRG NABS nontender no HSM no CCE nonfocal Mauricio Hawkins MD Oct 10, 2017 09:43
[2017-10-10 11:30] VITALS: BP 138/75
--- NOTE | 2017-10-11 13:38 | Discharge Summary ---
Discharge Summary Discharge Summary _ DATE OF ADMISSION: 10/08/2017 DATE OF DISCHARGE: 10/10/2017 REASON FOR ADMISSION: 63 years old female with past medical history of breast cancer , status post left mastectomy, bipolar type I , presented with complaint of chest pain No shortness of breath, no nausea ,no vomiting . Patient had recent cardiac workup done with negative stress test and negative CT of the chest. Troponin was negative. EKG revealed sinus rhythm, no acute ischemic changes . Electrolytes were stable. Elevated lipase [address] of the abdomen and pelvis was negative. Patient admitted with diagnoses of chest pain , history of left mastectomy , pancreatitis. HOSPITAL COURSE: Patient admitted. Serial troponin were negative. EKG revealed no acute ischemic changes. Patient was ruled out for acute DC. Prior recent cardiac workup was negative. Patient was on IV hydration. Patient was started on clear liquid bland diet. Lipase and amylase down to normal on 10/10. Diet was advanced as tolerated to bland, antiemetics were on board as needed. Patient was able to tolerate diet. Patient was started on aspirin. Patient started on low-dose of beta cristal and topical nitroglycerin. Pain management was addressed and pain was controlled. DVT and GI prophylaxis provided. Patient clinically improved and was stable for discharge home . Outpatient follow-up with primary care provider next week FINAL DIAGNOSES: Chest pain with left chest discomfort , probably secondary to history of left breast mastectomy Pancreatitis resolving DISCHARGE MEDICATIONS: See Medication Reconciliation list. DISCHARGE INSTRUCTIONS: Patient was discharged home follow-up with the primary care provider in one week I have been assigned to dictate discharge summary for this account. I was not involved in the patient's management. Rafia Chavez NP Oct 11, 2017 13:38
== END 2017-10-10 12:24 | disposition home or self-care (01) | DRG 282 ==
LOC: EDBD 16:05 → EMR 16:30 → 2E 20:58 → EDBEDREQ 21:15 → 4W 10-09 14:37
DX: K85.90 Acute pancreatitis without necrosis or infection, unspecified (principal); F31.9 Bipolar disorder, unspecified; R07.89 Other chest pain; Z85.3 Personal history of malignant neoplasm of breast; Z90.12 Acquired absence of left breast and nipple; Z88.8 Allergy status to other drugs, medicaments and biological substances; R11.0 Nausea
CPT/HCPCS: 36415; 71045; 74177; 80048; 80053; 82150; 82550; 82553; 83690; 84484; 85025; 93005; 99285

== ENCOUNTER 2017-10-29 14:06 | Emergency (ER) | payer MEDICAID ==
[~2017-10-29] VITALS: Ht 160 cm; Wt 62.6 kg
--- NOTE | 2017-10-29 14:13 | Emergency Room Report ---
History of Present Illness General Chief Complaint: Chest Pain Source: Patient Present Illness HPI Patient presents with left-sided chest pain. She states that she had breast cancer surgery in 2016 and occasionally has this type of pain. She rates at 9/ 10. She states it is localized, positional and also pleuritic. She has had some shortness of breath with this. She occasionally does smoke. She states that she's not been told about cardiac risk factors but she's taking Lipitor. She's taken Anaprox in the past for the pain. She felt feverish last night. She denies any sore throat. No nausea vomiting diarrhea. No dysuria. She also has been having trouble with her right leg catching on some difficulty walking. She denies any calf pain or edema. The problem seems to be her R knee. She had an accident many years ago and the knee sometimes gives her trouble. She was admitted twice in September for chest pain - both times it was felt CP was atypical for CAD. She also had elevated lipase and was diagnosed with pancreatitis. She denies abdominal pain at this time. No change in stools. H/O Bipolar disorder. Denies SI or HI. 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 [facility] Reviewed Nursing Documentation: PMH: Agreed; PSxH: Agreed Nursing Documentation-PMH Hx Cardiac Problems: Yes - ANGINA Hx Hypertension: Yes Hx Cancer: Yes - LT BREAST CA,MASTECTOMY 2016 Hx Cerebrovascular Accident: Yes Review of Systems All Other Systems: negative except mentioned in HPI Physical Exam Vital Signs Date Time Temp Pulse Resp B/P (MAP) Pulse Ox O2 Delivery O2 Flow Rate FiO2 10/29/17 14:00 98.2 61 18 125/61 99 Room Air 98.2 Sp02 EP Interpretation: reviewed, normal General Appearance: well appearing, no apparent distress, GCS 15 Head: normocephalic Eyes: bilateral eye normal inspection, bilateral eye PERRL ENT: moist mucus membranes Neck: supple Respiratory: lungs clear, normal breath sounds Cardiovascular #1: regular rate, rhythm Cardiovascular #2: 2+ radial (R) Gastrointestinal: normal inspection, normal bowel sounds, non tender, no mass, non-distended Musculoskeletal: back normal, gait/station normal, normal range of motion Neurologic: alert, oriented x3 Skin: normal inspection, warm/dry Medical Decision Making Diagnostic Impression: Primary Impression: Chest pain Qualified Codes: R07.89 - Other chest pain Additional Impressions: Osteoarthritis Qualified Codes: M17.31 - Unilateral post-traumatic osteoarthritis, right knee UTI (urinary tract infection) Qualified Codes: N30.00 - Acute cystitis without hematuria ER Course Patient presents with left-sided chest pain. Differential includes acute coronary syndrome, acute myocardial infarction, chest wall pain, postoperative pain, pneumothorax amongst others. The patient be evaluated with EKG, chest x- ray and labs. She'll be treated with IV hydration and Toradol initially. Based on physical exam and vital signs pulmonary embolus is extremely unlikely. EKG no injury. CXR no acute pathology. Labs with normal WBC, troponin, Repeat analgesia. Patient with some improvement. Still c/o R knee pain. Xrays obtained = DJD. Cody applied by tech and modified by me - good position and tension with normal neurovasc as checked by me. Ambulates well with cody. UA with pyuria. Patient asymptomatic but started on Macrobid. With recent observation and atypical hx, admission not indicated at this time. Discussed with social work case manager at request of patient. Patient stable for outpatient observation and treatment Laboratory Tests Test 10/29/17 14:15 10/29/17 15:35 White Blood Count 5.0 K/UL (4.8-10.8) Red Blood Count 3.77 M/UL (4.20-5.40) L Hemoglobin 10.6 G/DL (12.0-16.0) L Hematocrit 33.1 % (37.0-47.0) L Mean Corpuscular Volume 88 FL (80-99) Mean Corpuscular Hemoglobin 28.0 PG (27.0-31.0) Mean Corpuscular Hemoglobin Concent 31.9 G/DL (32.0-36.0) L Red Cell Distribution Width 12.6 % (11.6-14.8) Platelet Count 251 K/UL (150-450) Mean Platelet Volume 6.3 FL (6.5-10.1) L Neutrophils (%) (Auto) 46.0 % (45.0-75.0) Lymphocytes (%) (Auto) 40.6 % (20.0-45.0) Monocytes (%) (Auto) 8.7 % (1.0-10.0) Eosinophils (%) (Auto) 3.3 % (0.0-3.0) H Basophils (%) (Auto) 1.3 % (0.0-2.0) Prothrombin Time 10.5 SEC (9.30-11.50) Prothrombin Time INR 1.0 (0.9-1.1) PTT 21 SEC (23-33) L Sodium Level 145 MMOL/L (136-145) Potassium Level 3.6 MMOL/L (3.5-5.1) Chloride Level 110 MMOL/L (98-107) H Carbon Dioxide Level 26 MMOL/L (21-32) Anion Gap 9 mmol/L (5-15) Blood Urea Nitrogen 14 mg/dL (7-18) Creatinine 0.7 MG/DL (0.55-1.30) Estimate Glomerular Filtration Rate > 60 mL/min (>60) Glucose Level 117 MG/DL (74-106) H Calcium Level 9.8 MG/DL (8.5-10.1) Total Bilirubin 0.4 MG/DL (0.2-1.0) Aspartate Amino Transferase (AST) 25 U/L (15-37) Alanine Aminotransferase (ALT) 33 U/L (12-78) Alkaline Phosphatase 63 U/L (46-116) Total Creatine Kinase 661 U/L (26-308) H Troponin I 0.000 ng/mL (0.000-0.056) Pro-B-Type Natriuretic Peptide 75 pg/mL (0-125) Total Protein 7.2 G/DL (6.4-8.2) Albumin 3.6 G/DL (3.4-5.0) Globulin 3.6 g/dL Albumin/Globulin Ratio 1.0 (1.0-2.7) Lipase 201 U/L (73-393) Urine Color Pale yellow Urine Appearance Clear Urine pH 6 (4.5-8.0) Urine Specific [place] 1.015 (1.005-1.035) Urine Protein Negative (NEGATIVE) Urine Glucose (UA) Negative (NEGATIVE) Urine Ketones Negative (NEGATIVE) Urine Occult Blood 2+ (NEGATIVE) H Urine Nitrite Negative (NEGATIVE) Urine Bilirubin Negative (NEGATIVE) Urine Urobilinogen Normal MG/DL (0.0-1.0) Urine Leukocyte Esterase 3+ (NEGATIVE) H Urine RBC 2-4 /HPF (0 - 2) H Urine WBC 10-15 /HPF (0 - 2) H Urine Squamous Epithelial Cells Few /LPF (NONE/OCC) Urine Amorphous Sediment Few /LPF (NONE) H Urine Bacteria Moderate /HPF (NONE) H Urine Opiates Screen Negative (NEGATIVE) Urine Barbiturates Screen Negative (NEGATIVE) Phencyclidine (PCP) Screen Negative (NEGATIVE) Urine Amphetamines Screen Negative (NEGATIVE) Urine Benzodiazepines Screen Negative (NEGATIVE) Urine Cocaine Screen Negative (NEGATIVE) Urine Marijuana (THC) Screen Positive (NEGATIVE) H EKG Diagnostic Results Rate: normal Rhythm: NSR ST Segments: no acute changes - LVH Rhythm Strip Diag. Results EP Interpretation: yes Rhythm: NSR, no PVC's, no ectopy Chest X-Ray Diagnostic Results Chest X-Ray Diagnostic Results : Chest X-Ray Ordered: Yes # of Views/Limited/Complete: 1 View Indication: Chest Pain EP Interpretation: Yes Interpretation: no consolidation, no effusion, no pneumothorax Impression: No acute disease Electronically Signed by: Justin Chiang MD Other X-Ray Diagnostic Results Other X-Ray Diagnostic Results : X-Ray ordered: R knee # of Views/Limited Vs Complete: 3 View Indication: Other EP Interpretation: Yes Interpretation: no dislocation, no soft tissue swelling, no fractures, other - DJD Impression: Other Electronically Signed by: Justin Chiang MD Last Vital Signs Date Time Temp Pulse Resp B/P (MAP) Pulse Ox O2 Delivery O2 Flow Rate FiO2 10/29/17 17:40 98.2 10/29/17 17:36 63 20 117/53 98 Room Air Status: improved Disposition: HOME, SELF-CARE Condition: Improved Scripts Nitrofurantoin Monohyd/M-Cryst* (MACROBID 100 MG*) 100 Mg Capsule 100 MG ORAL EVERY 12 HOURS, #14 CAP Prov: Justin Chiang M.D. 10/29/17 Naproxen (Naproxen) 250 Mg Tablet 250 MG PO TID, #20 TAB Prov: Justin Chiang M.D. 10/29/17 Hydrocodone Bit/Acetaminophen 5-325* (NORCO 5-325*) 1 Each Tablet 1 TAB ORAL Q6H PRN for For Pain, #16 TAB 0 Refills Prov: Justin Chiang M.D. 10/29/17 Justin Chiang M.D. Oct 29, 2017 14:13
[2017-10-29] MEDS ORDERED: Ketorolac 30mg Inj IV ONE (14:15)
[2017-10-29 14:27] LABS: BASOPHILS % (AUTO) 1.3 % (0.0-2.0); EOSINOPHILS % (AUTO) 3.3 % (0.0-3.0); HEMATOCRIT 33.1 % (37.0-47.0); HEMOGLOBIN 10.6 G/DL (12.0-16.0); LYMPHOCYTES % (AUTO) 40.6 % (20.0-45.0); MEAN CORPUSCULAR VOLUME 88 FL (80-99); MONOCYTES % (AUTO) 8.7 % (1.0-10.0); PLATELET COUNT 251 K/UL (150-450); RED BLOOD COUNT 3.77 M/UL (4.20-5.40); RED CELL DISTRIBUTION WIDTH 12.6 % (11.6-14.8)
[2017-10-29 14:37] LABS: ANION GAP 9 mmol/L (5-15); BLOOD UREA NITROGEN 14 mg/dL (7-18); CALCIUM 9.8 MG/DL (8.5-10.1); CARBON DIOXIDE 26 MMOL/L (21-32); CHLORIDE 110 MMOL/L (98-107); CREATININE 0.7 MG/DL (0.55-1.30); POTASSIUM 3.6 MMOL/L (3.5-5.1); SODIUM 145 MMOL/L (136-145)
[2017-10-29 14:49] LABS: ALANINE AMINOTRANSFERASE 33 U/L (12-78); ALBUMIN 3.6 G/DL (3.4-5.0); ALKALINE PHOSPHATASE 63 U/L (46-116); ASPARTATE AMINO TRANSFERASE 25 U/L (15-37); BILIRUBIN,TOTAL 0.4 MG/DL (0.2-1.0); CREATINE KINASE 661 U/L (26-308)
[2017-10-29] MEDS ORDERED: Norco 5mg/325mg tab ORAL ONE ×2 (15:15→17:00)
[2017-10-29 16:00] VITALS: BP 117/53
--- NOTE | 2017-10-29 16:00 | Diagnostic Imaging Report ---
Indication: Chest pain Technique: One view of the chest Comparison: 10/08/2017. Also chest CT angiogram of 09/27/2017 Findings: Nodular opacity appears in the left midlung periphery, not evident previously. Obliquely oriented linear band projects at the left lung base. The lungs and pleural spaces otherwise clear. Surgical clips project over the left chest. The heart size is normal Impression: Left midlung nodular opacity, not evident previously normal on recent CT scan, so presumably a small focus of atelectasis No acute process Other findings as noted
[2017-10-29 16:19] LABS: APPEARANCE,URINE CLEAR; BILIRUBIN, URINE NEGATIVE (NEGATIVE); COLOR,URINE PALE YELLOW; GLUCOSE, URINE (UA) NEGATIVE (NEGATIVE); KETONES,URINE NEGATIVE (NEGATIVE); LEUKOCYTE ESTERASE ,URINE 3+ (NEGATIVE); NITRITE,URINE NEGATIVE (NEGATIVE); PH,URINE 6 (4.5-8.0); PROTEIN,URINE NEGATIVE (NEGATIVE); UROBILINOGEN,URINE NORMAL MG/DL (0.0-1.0)
--- NOTE | 2017-10-29 16:59 | Diagnostic Imaging Report ---
Indication: Knee pain Technique: 3 views of the right knee Comparison: None Findings: There are degenerative changes of the knee, with medial and patellofemoral compartment degenerative joint space narrowing and extensive degenerative proliferative changes and some degenerative remodeling. No acute fractures. No dislocations. No evidence of effusion Impression: Degenerative changes, as described No definite acute bony trauma
[2017-10-29] MEDS ORDERED: NORCO 5-325 TA1 EACH ORAL (17:18)
[2017-10-29] MEDS ORDERED: NAPROXEN250 M1 PO (17:18)
[2017-10-29] MEDS ORDERED: NITROFURANTOIN100 M2 ORAL (17:24)
[2017-10-29 17:36] VITALS: BP 117/53
--- NOTE | 2017-10-31 18:43 | Cardiology Report ---
APPROVED REPORT EKG Measurement Heart [id number] Normal sinus rhythm Minimal voltage criteria for LVH, may be normal variant Borderline ECG
== END 2017-10-29 17:49 | disposition home or self-care (01) ==
LOC: EDBD 14:06 → EMR 14:16
DX: R07.89 Other chest pain (principal); M17.31 Unilateral post-traumatic osteoarthritis, right knee; N30.00 Acute cystitis without hematuria; I10 Essential (primary) hypertension; Z86.73 Personal history of transient ischemic attack (TIA), and cerebral infarction without residual deficits; Z85.3 Personal history of malignant neoplasm of breast; Z90.12 Acquired absence of left breast and nipple; F17.200 Nicotine dependence, unspecified, uncomplicated; Z88.8 Allergy status to other drugs, medicaments and biological substances; F31.9 Bipolar disorder, unspecified
CPT/HCPCS: 36415; 71045; 73562; 80053; 80307; 81003; 82550; 83690; 83880; 84484; 85025; 85610; 85730; 87086; 87181; 93005; 96374; 99285; J1885

== ENCOUNTER 2017-11-06 13:34 | Emergency (ER) | payer MEDICAID ==
[~2017-11-06] VITALS: Ht 160 cm; Wt 71.2 kg
[~2017-11-06 13:34] MED LIST changes: +NAPROXEN250 M1 PO; +NITROFURANTOIN100 M2 ORAL; +NORCO 5-325 TA1 EACH ORAL
[2017-11-06] MEDS ORDERED: Morphine Sulfate 4mg/ml Inj (IV USE ONLY) IVP ONE (14:15)
--- NOTE | 2017-11-06 14:24 | Emergency Room Report ---
History of Present Illness General Chief Complaint: Abdominal Pain Source: Patient, EMS Present Illness HPI 62-year-old female with a reported history of pancreatitis reports she's been having epigastric and left-sided abdominal pain for the past week, worse over the past few days, she reports she had a normal bowel movement yesterday but has been taking Dulcolax recently but no other medications for pain or her symptoms. She denies vomiting, fever, nausea, any other complaints other than this epigastric and left-sided abdominal pain shortness achy crampy and more or less constant, but has no obvious alleviating or exacerbating factors. Allergies: Coded Allergies: CYCLOBENZAPRINE (Unverified Allergy, Unknown, 09/27/17) MEPERIDINE (Unverified Allergy, Unknown, 09/27/17) METRONIDAZOLE (Verified Allergy, Unknown, 10/29/17) PROCHLORPERAZINE (Unverified Allergy, Unknown, 09/27/17) ZIPRASIDONE (Verified Allergy, Unknown, 10/29/17) Patient History Past Medical History: see triage record Now: No Reviewed Nursing Documentation: PMH: Agreed; PSxH: Agreed Nursing Documentation-PMH Past Medical History: No History, Except For Hx Hypertension: Yes Hx Cancer: Yes - LT BREAST CA,MASTECTOMY 2016 Hx Cerebrovascular Accident: Yes Review of Systems All Other Systems: negative except mentioned in HPI Physical Exam Vital Signs Date Time Temp Pulse Resp B/P (MAP) Pulse Ox O2 Delivery O2 Flow Rate FiO2 11/06/17 13:34 97.9 72 18 129/63 96 Room Air 97.9 Sp02 EP Interpretation: reviewed, normal General Appearance: no apparent distress, alert, non-toxic Head: normocephalic Eyes: bilateral eye normal inspection, bilateral eye PERRL, bilateral eye EOMI ENT: normal ENT inspection, hearing grossly normal, normal pharynx, no angioedema, normal voice, moist mucus membranes Neck: normal inspection, full range of motion, supple, supple/symm/no masses Respiratory: chest non-tender, lungs clear, normal breath sounds, chest symmetrical, palpation of chest normal Cardiovascular #1: normal peripheral pulses, regular rate, rhythm Cardiovascular #2: 2+ radial (R), 2+ radial (L), 2+ dorsalis pedis (R), 2+ dorsalis pedis (L) Gastrointestinal: normal inspection, non tender, soft, no mass, no guarding, no rebound Rectal: deferred Genitourinary: normal inspection, no CVA tenderness Musculoskeletal: back normal, gait/station normal, normal range of motion, non- tender, no calf tenderness Neurologic: alert, responsive, manganese heater III-XII nml as tested, motor strength/tone normal, sensory intact, speech normal Psychiatric: judgement/insight normal, memory normal, mood/affect normal, no suicidal/homicidal ideation Skin: normal color, no rash, warm/dry, normal turgor Lymphatic: no adenopathy Medical Decision Making Diagnostic Impression: Primary Impression: Abdominal pain ER Course Patient with a soft, nontender abdomen, basic labs obtained, given IV fluids, Pepcid, Zofran, 4 mgs morphine. Rhythm Strip Diag. Results Rhythm Strip Time: 14:23 EP Interpretation: yes Rate: 67 Rhythm: NSR, no PVC's, no ectopy Last Vital Signs Date Time Temp Pulse Resp B/P (MAP) Pulse Ox O2 Delivery O2 Flow Rate FiO2 11/06/17 13:34 97.9 72 18 129/63 96 Room Air 97.9 Referrals: [facility]ERR[facility] (PCP) PORTIA NICHOLSON M.D Nov 06, 2017 14:24
[2017-11-06 14:47] LABS: BASOPHILS % (AUTO) 1.1 % (0.0-2.0); HEMATOCRIT 37.1 % (37.0-47.0); HEMOGLOBIN 11.8 G/DL (12.0-16.0); MEAN CORPUSCULAR VOLUME 87 FL (80-99); MONOCYTES % (AUTO) 10.9 % (1.0-10.0); PLATELET COUNT 248 K/UL (150-450); RED BLOOD COUNT 4.25 M/UL (4.20-5.40); RED CELL DISTRIBUTION WIDTH 12.6 % (11.6-14.8); WHITE BLOOD COUNT 4.9 K/UL (4.8-10.8)
[2017-11-06 15:04] LABS: ANION GAP 10 mmol/L (5-15); BLOOD UREA NITROGEN 13 mg/dL (7-18); CALCIUM 10.3 MG/DL (8.5-10.1); CARBON DIOXIDE 29 MMOL/L (21-32); CHLORIDE 109 MMOL/L (98-107); CREATININE 0.7 MG/DL (0.55-1.30); POTASSIUM 3.2 MMOL/L (3.5-5.1); SODIUM 148 MMOL/L (136-145)
[2017-11-06 15:08] LABS: ALANINE AMINOTRANSFERASE 32 U/L (12-78); ALBUMIN 3.9 G/DL (3.4-5.0); ALKALINE PHOSPHATASE 64 U/L (46-116); ASPARTATE AMINO TRANSFERASE 27 U/L (15-37); BILIRUBIN,TOTAL 0.5 MG/DL (0.2-1.0)
[2017-11-06 15:28] LABS: APPEARANCE,URINE CLEAR; BILIRUBIN, URINE NEGATIVE (NEGATIVE); GLUCOSE, URINE (UA) NEGATIVE (NEGATIVE); KETONES,URINE NEGATIVE (NEGATIVE); LEUKOCYTE ESTERASE ,URINE 1+ (NEGATIVE); NITRITE,URINE NEGATIVE (NEGATIVE); PH,URINE 7 (4.5-8.0); PROTEIN,URINE NEGATIVE (NEGATIVE); UROBILINOGEN,URINE 1 MG/DL (0.0-1.0)
--- NOTE | 2017-11-06 15:30 | Diagnostic Imaging Report ---
EXAM: XR Abdomen, 2 Views CLINICAL HISTORY: PAIN TECHNIQUE: Frontal view of the abdomen/pelvis with upright view of the abdomen. COMPARISON: CT of the abdomen and pelvis dated 10/08/17 FINDINGS: Intraperitoneal space: No free air. Gastrointestinal tract: Diffuse colonic fecal retention. Otherwise unremarkable bowel gas pattern. No abnormal distention of large or small bowel loops. No luminal air fluid levels. No evidence of pneumatosis intestinalis, pneumoperitoneum, or portal venous gas. Renal shadows obscured by overlying bowel gas. Bones/joints: Mild multilevel degenerative changes throughout the visualized spine. Mild degenerative changes in the hip joints. Soft tissues: 12 mm round calcified density projecting over the right SI joint, known to be in the subcutaneous soft tissues of the right posterior gluteal region based on the comparison CT, likely a granuloma. IMPRESSION: Diffuse colonic fecal retention, suggestive of constipation.
[2017-11-06 15:37] LABS: COLOR,URINE YELLOW
[2017-11-06] MEDS ORDERED: Ketorolac 30mg Inj IV ONE (15:45)
[2017-11-06] MEDS ORDERED: MAGNESIUM CITR296 M1 PO (15:47)
[2017-11-06] MEDS ORDERED: COLACE100 MG ORAL (15:47)
--- NOTE | 2017-11-06 15:59 | Emergency Room Report ---
Physical Exam Vital Signs Date Time Temp Pulse Resp B/P (MAP) Pulse Ox O2 Delivery O2 Flow Rate FiO2 11/06/17 13:34 97.9 72 18 129/63 96 Room Air 97.9 Medical Decision Making Diagnostic Impression: Primary Impression: Constipation Qualified Codes: K59.00 - Constipation, unspecified Additional Impression: Abdominal pain Qualified Codes: R10.9 - Unspecified abdominal pain ER Course Hospital Course 62-year-old F presents to ED with abdominal pain Clinical course Patient initially seen and evaluated by Dr Hope; please see his note for full history and physical Labs - no leukocytosis, electrolytes ok, LFTs normal KUB - copious stool noted, no signs of obstruction Discussed findings with patient. Patient safe for discharge. We will prescribe stool softeners and magnesium citrate. Recommend close follow-up with PMD I feel this is a highly complex case requiring extensive working including EKG/ Rhythm strip, Xray/CT/US, Blood/urine lab work, repeat exams while in ED, and administration of strong opiates/narcotics for pain control, admission to hospital or close patient follow up. Diagnosis - constipation, abdominal pain Stable and discharged to home with Rx Mag citrate, Colace. instructed on high- fiber diet. Followup with PMD. Return to ED if symptoms recur or worsen Labs Test 11/06/17 14:00 11/06/17 15:10 White Blood Count 4.9 K/UL (4.8-10.8) Red Blood Count 4.25 M/UL (4.20-5.40) Hemoglobin 11.8 G/DL (12.0-16.0) Hematocrit 37.1 % (37.0-47.0) Mean Corpuscular Volume 87 FL (80-99) Mean Corpuscular Hemoglobin 27.8 PG (27.0-31.0) Mean Corpuscular Hemoglobin Concent 31.9 G/DL (32.0-36.0) Red Cell Distribution Width 12.6 % (11.6-14.8) Platelet Count 248 K/UL (150-450) Mean Platelet Volume 6.3 FL (6.5-10.1) Neutrophils (%) (Auto) 56.0 % (45.0-75.0) Lymphocytes (%) (Auto) 29.0 % (20.0-45.0) Monocytes (%) (Auto) 10.9 % (1.0-10.0) Eosinophils (%) (Auto) 3.0 % (0.0-3.0) Basophils (%) (Auto) 1.1 % (0.0-2.0) Sodium Level 148 MMOL/L (136-145) Potassium Level 3.2 MMOL/L (3.5-5.1) Chloride Level 109 MMOL/L (98-107) Carbon Dioxide Level 29 MMOL/L (21-32) Anion Gap 10 mmol/L (5-15) Blood Urea Nitrogen 13 mg/dL (7-18) Creatinine 0.7 MG/DL (0.55-1.30) Estimat Glomerular Filtration Rate > 60 mL/min (>60) Glucose Level 125 MG/DL (74-106) Calcium Level 10.3 MG/DL (8.5-10.1) Total Bilirubin 0.5 MG/DL (0.2-1.0) Aspartate Amino Transf (AST/SGOT) 27 U/L (15-37) Alanine Aminotransferase (ALT/SGPT) 32 U/L (12-78) Alkaline Phosphatase 64 U/L (46-116) Total Protein 7.7 G/DL (6.4-8.2) Albumin 3.9 G/DL (3.4-5.0) Globulin 3.8 g/dL Albumin/Globulin Ratio 1.0 (1.0-2.7) Lipase 142 U/L (73-393) Urine Color Yellow Urine Appearance Clear Urine pH 7 (4.5-8.0) Urine Specific [place] 1.010 (1.005-1.035) Urine Protein Negative (NEGATIVE) Urine Glucose (UA) Negative (NEGATIVE) Urine Ketones Negative (NEGATIVE) Urine Occult Blood Negative (NEGATIVE) Urine Nitrite Negative (NEGATIVE) Urine Bilirubin Negative (NEGATIVE) Urine Urobilinogen 1 MG/DL (0.0-1.0) Urine Leukocyte Esterase 1+ (NEGATIVE) Urine RBC 0-2 /HPF (0 - 2) Urine WBC 5-10 /HPF (0 - 2) Urine Squamous Epithelial Cells Few /LPF (NONE/OCC) Urine Bacteria Moderate /HPF (NONE) Other X-Ray Diagnostic Results Other X-Ray Diagnostic Results : X-Ray ordered: KUB # of Views/Limited Vs Complete: 4 View Indication: Pain EP Interpretation: Yes Interpretation: nonspecific bowel gas, no sbo, other - fecal impaction Impression: Other - constipation Electronically Signed by: Electronically signed by Mason Harris MD Last Vital Signs Date Time Temp Pulse Resp B/P (MAP) Pulse Ox O2 Delivery O2 Flow Rate FiO2 11/06/17 15:49 97.9 11/06/17 13:34 72 18 129/63 96 Room Air Status: improved Disposition: HOME, SELF-CARE Condition: Stable Scripts Magnesium Citrate (MAGNESIUM CITRATE) 296 Ml Solution 150 ML PO DAILY for 2 Days, #296 ML Prov: Mason Harris MD 11/06/17 Docusate Sodium* (COLACE*) 100 Mg Capsule 100 MG ORAL THREE TIMES A DAY, #30 CAP Prov: Mason Harris MD 11/06/17 Patient Instructions: Constipation, Adult, [id number] Mason Harris MD Nov 06, 2017 15:59
[2017-11-06 16:11] VITALS: BP 120/66
[2017-11-06 16:12] VITALS: BP 120/66
== END 2017-11-06 16:13 | disposition home or self-care (01) ==
LOC: EDBD 13:34 → EMR 14:00
DX: K59.00 Constipation, unspecified (principal); R10.9 Unspecified abdominal pain; I10 Essential (primary) hypertension; Z86.73 Personal history of transient ischemic attack (TIA), and cerebral infarction without residual deficits; Z85.3 Personal history of malignant neoplasm of breast; Z90.12 Acquired absence of left breast and nipple
CPT/HCPCS: 36415; 74019; 80053; 81003; 83690; 85025; 87086; 96361; 96374; 96375; 99284; J1885; J2270; J2405; S0028

== ENCOUNTER 2018-01-13 18:02 | Emergency (ER) | payer MEDICAID ==
[~2018-01-13] VITALS: Ht 160 cm; Wt 68.0 kg
[~2018-01-13 18:02] MED LIST changes: +COLACE100 MG ORAL; +MAGNESIUM CITR296 M1 PO
[2018-01-13] MEDS ORDERED: Norco 5mg/325mg tab ORAL ONE (18:30)
--- NOTE | 2018-01-13 19:07 | Emergency Room Report ---
History of Present Illness General Chief Complaint: Lower Extremity Injury Present Illness HPI 52-year-old female presents to the emergency department complaining of localized 8 out of 10 in severity pain to the right knee with associated swelling times one day. Patient reports that she was walking in her knee gave out from under her. Patient reports pain with weightbearing and with bending her knee. Patient states she is able to fully extend her leg however it does cause some pain. Patient reports history of chronic pain in the knees and arthritis. Patient denies hitting her head or loss of consciousness. She denies erythema, warmth, fevers or chills. Patient denies recent open wound near the affected joint. Allergies: Coded Allergies: ARIPIPRAZOLE (Unverified Allergy, Unknown, 01/13/18) CYCLOBENZAPRINE (Unverified Allergy, Unknown, 09/27/17) MEPERIDINE (Unverified Allergy, Unknown, 09/27/17) METRONIDAZOLE (Verified Allergy, Unknown, 10/29/17) PROCHLORPERAZINE (Unverified Allergy, Unknown, 09/27/17) ZIPRASIDONE (Verified Allergy, Unknown, 10/29/17) Patient History Past Medical History: see triage record Past Surgical History: none Pertinent Family History: none Now: No Reviewed Nursing Documentation: PMH: Agreed; PSxH: Agreed Nursing Documentation-PMH Hx Cardiac Problems: Yes - stoke Hx Hypertension: Yes Hx Cancer: Yes - left breast, lumpectomy done 2014 History Of Psychiatric Problem: Yes Hx Cerebrovascular Accident: Yes Review of Systems All Other Systems: negative except mentioned in HPI Physical Exam Vital Signs Date Time Temp Pulse Resp B/P (MAP) Pulse Ox O2 Delivery O2 Flow Rate FiO2 01/13/18 18:03 99.0 62 16 133/75 97 Room Air Sp02 EP Interpretation: reviewed, normal General Appearance: no apparent distress, alert, GCS 15, non-toxic Head: normocephalic, atraumatic Eyes: bilateral eye normal inspection, bilateral eye PERRL ENT: hearing grossly normal, normal voice Neck: full range of motion Respiratory: lungs clear, normal breath sounds, speaking full sentences Cardiovascular #1: regular rate, rhythm, normal capillary refill Cardiovascular #2: 2+ dorsalis pedis (R), 2+ dorsalis pedis (L) Musculoskeletal: back normal, gait/station normal, normal range of motion, no calf tenderness, tender - TTp to the anteriolateral aspects of the right knee, there is swelling noted, no bruises or open wounds. normal ability to extend the leg, pain with flexing but able to. pt. ambulating with compensatory gait. no increased laxity on knee exam, no obvious defomity or clicking of the joint. no palpable posterior pulsations. PT. NVI. Neurologic: alert, oriented x3, responsive, motor strength/tone normal, sensory intact, speech normal, grossly normal Psychiatric: judgement/insight normal Skin: normal color, no rash, warm/dry, well hydrated Lymphatic: no adenopathy Medical Decision Making PA Attestation Dr. Parr is my supervising Physician whom patient management has been discussed with. Diagnostic Impression: Primary Impression: Knee effusion, right Additional Impression: Knee pain, right Qualified Codes: M25.561 - Pain in right knee ER Course 52-year-old female presents to the emergency department complaining of localized 8 out of 10 in severity pain to the right knee with associated swelling times one day. Patient reports that she was walking in her knee gave out from under her. Patient reports pain with weightbearing and with bending her knee. Patient states she is able to fully extend her leg however it does cause some pain. Patient reports history of chronic pain in the knees and arthritis. Patient denies hitting her head or loss of consciousness. She denies erythema, warmth, fevers or chills. Patient denies recent open wound near the affected joint. Denies numbness tingling or loss of sensation or gross motor movements of the extremities, incontinence of bowel or bladder. Denies CP, Palpitations, LOC, AMS , dizziness, Changes in Vision, weakness or a sudden severe headache. Ddx considered but are not limited to Fracture, dislocation, contusion, Sprain/ Strain/Spasm, septic joint , knee effusion just to name a few. Vital signs: are WNL, pt. is afebrile H&PE are most consistent with musculoskeletal injury will perform imaging to r/ o fractures/dislocations. ORDERS: - X-ray's: Negative ED INTERVENTIONS: - [place] PO -Knee Immobilizer splint applied to the Right Knee by director of instructional technology. Pt. remains neurovascularly intact. --Patient is provided with cane and instructed on its use by supply tech - I reviewed this pt. CURES report and there are no active prescriptions for controlled substances in [place] at this time. DISCHARGE: At this time pt. is stable for d/c to home. Will provide printed patient care instructions, and any necessary prescriptions. Care plan and follow up instructions have been discussed with the patient prior to discharge. Other X-Ray Diagnostic Results Other X-Ray Diagnostic Results : X-Ray ordered: Right knee # of Views/Limited Vs Complete: 3 View Indication: Pain EP Interpretation: Yes PA Xray: Interpretation reviewed, by supervising MD, and agrees with findings. Interpretation: no dislocation, no soft tissue swelling, no fractures Impression: No acute disease Electronically Signed by: Jyothi Lin PA-C Last Vital Signs Date Time Temp Pulse Resp B/P (MAP) Pulse Ox O2 Delivery O2 Flow Rate FiO2 01/13/18 18:03 99.0 62 16 133/75 97 Room Air Disposition: HOME, SELF-CARE Condition: Stable Scripts Hydrocodone Bit/Acetaminophen 5-325* (NORCO 5-325*) 1 Each Tablet 1 TAB ORAL Q8HR PRN for For Pain for 2 Days, #8 TAB 0 Refills Prov: Jyothi Lin 01/13/18 Ibuprofen* (MOTRIN*) 600 Mg Tablet 600 MG ORAL THREE TIMES A DAY, #20 TAB 0 Refills Prov: Jyothi Lin 01/13/18 Patient Instructions: Knee Sprain Additional Instructions: Take medications as directed. Follow up with a Primary Care Provider in 3-5 days, even if your symptoms have resolved. --Please review list of primary care clinics, if you do not already have a primary care provider Return sooner to ED if new symptoms occur, or current symptoms become worse. Do not drink alcohol, drive, or operate heavy machinery while taking [ ] as this may cause drowsiness. - Please note that this Emergency Department Report was dictated using [employer] clinical programmer technology software, occasionally this can lead to erroneous entry secondary to interpretation by the dictation equipment. Jyothi Lin Jan 13, 2018 19:07
[2018-01-13] MEDS ORDERED: NORCO 5-325 TA1 EACH ORAL (19:11)
[2018-01-13] MEDS ORDERED: IBUPROFEN600 MG ORAL (19:11)
[2018-01-13 19:22] VITALS: BP 133/75
--- NOTE | 2018-01-14 10:20 | Diagnostic Imaging Report ---
Indication: Knee pain Technique: 3 views of the right knee Comparison: None Findings: There is marked degenerative joint space narrowing of the medial joint compartment anterior possibly of the patellofemoral compartment. Extensive proliferative changes of all 3 compartments are noted. There may be lateral meniscal chondrocalcinosis. Ossific densities projected posterior to the distal femur on the lateral view could represent loose bodies. No definite effusion Impression: No acute bony trauma Extensive degenerative changes, as described Possible intra-articular loose bodies posteriorly
== END 2018-01-13 19:24 | disposition home or self-care (01) ==
LOC: EDBD 18:02 → EMR 19:24
DX: M25.461 Effusion, right knee (principal); M25.561 Pain in right knee; I10 Essential (primary) hypertension; Z85.3 Personal history of malignant neoplasm of breast; Z90.12 Acquired absence of left breast and nipple; Z88.8 Allergy status to other drugs, medicaments and biological substances; Z86.73 Personal history of transient ischemic attack (TIA), and cerebral infarction without residual deficits
CPT/HCPCS: 29515; 99283

== ENCOUNTER 2019-05-28 09:54 | Inpatient (IN) | payer MEDICAID ==
[~2019-05-28] VITALS: Ht 160 cm; Wt 68.5 kg
[~2019-05-28 09:54] MED LIST changes: +IBUPROFEN600 MG ORAL
--- NOTE | 2019-05-28 10:25 | NUR ---
ED Nurse Note: Patient brought in by ambulance from [facility] due to chest pain and coughing since yesterday. pt aao x4 and ambulatory. skin clean and intact. calm and cooperative. no cardiac or pulmonary distress noted beside c/o Lt side of chest pain 5/10 that radiates to Lt shoulder. pt is in gown and on child monitor.
--- NOTE | 2019-05-28 10:29 | NUR ---
ED Nurse Note: pt requested medication for chest pain. ERMD made aware.
[2019-05-28 10:30] VITALS: BP 105/71
[2019-05-28] MEDS ORDERED: Morphine Sulfate 2mg/ml Inj(IV/IM USE ONLY) IVP ONE (10:30)
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
--- NOTE | 2019-05-28 10:34 | NUR ---
ED Nurse Note: x-ray at bedside.
--- NOTE | 2019-05-28 10:40 | NUR ---
ED Nurse Note: pt has not coughed since arrival.
[2019-05-28 10:49] LABS: ANION GAP 11 mmol/L (5-15); BLOOD UREA NITROGEN 13 mg/dL (7-18); CALCIUM 10.5 MG/DL (8.5-10.1); CARBON DIOXIDE 27 MMOL/L (21-32); CHLORIDE 103 MMOL/L (98-107); CREATININE 0.7 MG/DL (0.55-1.30); POTASSIUM 3.9 MMOL/L (3.5-5.1); SODIUM 141 MMOL/L (136-145)
[2019-05-28 10:53] LABS: ALANINE AMINOTRANSFERASE 43 U/L (12-78); ALBUMIN 3.6 G/DL (3.4-5.0); ALBUMIN/GLOBULIN RATIO 0.9 (1.0-2.7); ALKALINE PHOSPHATASE 76 U/L (46-116); ASPARTATE AMINO TRANSFERASE 35 U/L (15-37); BASOPHILS % (AUTO) 1.8 % (0.0-2.0); BILIRUBIN,TOTAL 0.5 MG/DL (0.2-1.0); EOSINOPHILS % (AUTO) 1.5 % (0.0-3.0); HEMATOCRIT 37.4 % (37.0-47.0); HEMOGLOBIN 12.6 G/DL (12.0-16.0); LYMPHOCYTES % (AUTO) 38.3 % (20.0-45.0); MEAN CORPUSCULAR VOLUME 86 FL (80-99); MONOCYTES % (AUTO) 12.1 % (1.0-10.0); NEUTROPHILS % (AUTO) 46.4 % (45.0-75.0); PLATELET COUNT 278 K/UL (150-450); RED BLOOD COUNT 4.33 M/UL (4.20-5.40); WHITE BLOOD COUNT 3.8 K/UL (4.8-10.8)
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
--- NOTE | 2019-05-28 11:21 | Diagnostic Imaging Report ---
EXAM: XR Chest, 1 View CLINICAL HISTORY: PAIN TECHNIQUE: Frontal view of the chest. COMPARISON: No relevant prior studies available. FINDINGS: Lungs: Accentuation of pulmonary markings. No confluent consolidation. Pleural space: Unremarkable. No pneumothorax. Heart: Borderline cardiomegaly. Mediastinum: Unremarkable. Bones/joints: No acute fracture. Soft tissues: Surgical clips projecting over the left chest. IMPRESSION: Accentuation of pulmonary markings. No confluent consolidation.
[2019-05-28] MEDS ORDERED: SPIRONOLACTONE100 MG ORAL (12:24)
[2019-05-28] MEDS ORDERED: QUETIAPINE FUMA50 MG ORAL (12:24)
[2019-05-28] MEDS ORDERED: BENZTROPINE MESY1 MG ORAL (12:24)
[2019-05-28] MEDS ORDERED: ATORVASTATIN CA20 MG ORAL (12:24)
[2019-05-28] MEDS ORDERED: CHLORTHALIDONE25 MG ORAL (12:24)
[2019-05-28] MEDS ORDERED: ARIMIDEX1 MG ORAL (12:27)
--- NOTE | 2019-05-28 12:47 | NUR ---
ED Nurse Note: pt dropped 1 pill of Tylenol 325mg. it was wasted to medication waste box. one more tab was removed from pyxis, witnessed by Yolanda Kim RN.
--- NOTE | 2019-05-28 12:56 | NUR ---
ED Nurse Note: x-ray at bedside.
--- NOTE | 2019-05-28 13:50 | NUR ---
ED Nurse Note: Report given to FARHANA Vela
--- NOTE | 2019-05-28 13:55 | NUR ---
ED Nurse Note: pt transferred to Telemetry unit with satellite project site monitor and by 2 RNs in stable condition.
--- NOTE | 2019-05-28 13:59 | NUR ---
NURSE NOTES: Telephone report received from Yu Munoz. awaiting patients arrival to the unit
[2019-05-28 14:00] VITALS: BP 110/62
--- NOTE | 2019-05-28 14:00 | NUR ---
NURSE NOTES: Received patient and report from Tammy ER Nurse. Patient transferred to room 218-2 without any incident. Patient is alert and oriented, on cardiac diet-instructed. oral therapist is in placed. With IV at left AC G-22, intact, clean and patent. VSS and initial assessment done. Bed is in lowest position and locked. Call light and bedside table within reach. Belongings list checked and signed. No signs of distress nor chest pain noted at this time. Plan of care discussed, admission orders received from Dr. Fuentes, oriented to room and hospital vicinity. Fall precaution implemented.
[2019-05-28] MEDS: HYDROcodone/Acetamin 5/325 tab ORAL PRN ×2 (15:57→22:26)
[2019-05-28 16:00] VITALS: BP 99/68
[2019-05-28] MEDS: Docusate 100mg cap ORAL SCH (17:47)
--- NOTE | 2019-05-28 19:50 | NUR ---
NURSE NOTES: Received patient from Mirian DELCID. Patient in bed, on room air, no signs of respiratory distress. Bed in low position, locked, call light within reach. Bilateral scds on.
--- NOTE | 2019-05-28 19:50 | NUR ---
HAND-OFF: Report given to FARHANA Vaughn. Patient is on bed, no complaints of pain at this time, plan of care endorsed.
[2019-05-28 20:00] VITALS: BP 95/62
[2019-05-29] VITALS: BP 106/68
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
[2019-05-29 04:00] VITALS: BP 110/62
[2019-05-29] MEDS: HYDROcodone/Acetamin 5/325 tab ORAL PRN ×3 (06:01→21:28)
--- NOTE | 2019-05-29 07:15 | NUR ---
NURSE NOTES: pt in bed awake just had breakfast. Pt AOx4. Pt continued compliance monitor, no signs of cardiac or respiratory distress reported at this time. Call light within reach, bed in lowest position, rails up x2. Bed alarm on for safety. will continue to monitor pt and lab values.
[2019-05-29 08:00] VITALS: BP 102/60
[2019-05-29 08:14] LABS: BASOPHILS % (AUTO) 1.8 % (0.0-2.0); EOSINOPHILS % (AUTO) 3.3 % (0.0-3.0); HEMATOCRIT 37.3 % (37.0-47.0); HEMOGLOBIN 12.6 G/DL (12.0-16.0); LYMPHOCYTES % (AUTO) 40.8 % (20.0-45.0); MEAN CORPUSCULAR VOLUME 87 FL (80-99); MONOCYTES % (AUTO) 17.5 % (1.0-10.0); NEUTROPHILS % (AUTO) 36.6 % (45.0-75.0); PLATELET COUNT 261 K/UL (150-450); RED BLOOD COUNT 4.29 M/UL (4.20-5.40); RED CELL DISTRIBUTION WIDTH 12.1 % (11.6-14.8); WHITE BLOOD COUNT 3.5 K/UL (4.8-10.8)
[2019-05-29 08:15] LABS: ANION GAP 10 mmol/L (5-15); BLOOD UREA NITROGEN 13 mg/dL (7-18); CALCIUM 10.2 MG/DL (8.5-10.1); CARBON DIOXIDE 27 MMOL/L (21-32); CHLORIDE 103 MMOL/L (98-107); CREATININE 0.7 MG/DL (0.55-1.30); SODIUM 140 MMOL/L (136-145)
[2019-05-29] MEDS: Anastrazole 1mg tab ORAL SCH (08:55)
[2019-05-29] MEDS: Benztropine 1mg tab ORAL SCH (08:57)
[2019-05-29] MEDS: Docusate 100mg cap ORAL SCH ×3 (08:57→18:31)
[2019-05-29] MEDS: Spironolactone 50mg tab ORAL SCH (08:58)
[2019-05-29] MEDS: Magnesium Citrate Liq Btl ORAL SCH (09:00)
[2019-05-29 10:51] LABS: ALANINE AMINOTRANSFERASE 41 U/L (12-78); ALBUMIN 3.5 G/DL (3.4-5.0); ALKALINE PHOSPHATASE 68 U/L (46-116); ASPARTATE AMINO TRANSFERASE 32 U/L (15-37); BILIRUBIN,TOTAL 0.4 MG/DL (0.2-1.0); PHOSPHORUS 4.4 MG/DL (2.5-4.9)
[2019-05-29 10:53] LABS: BILIRUBIN,DIRECT < 0.1 MG/DL (0.0-0.3)
--- NOTE | 2019-05-29 10:58 | General Progress Note ---
Assessment/Plan Problem List: (1) anemia (2) Chest pain ICD Codes: R07.9 - Chest pain, unspecified SNOMED: 10443811 (3) Osteoarthritis ICD Codes: M19.90 - Unspecified osteoarthritis, unspecified site SNOMED: 491822117 Status: progressing Assessment/Plan: afebrile nac chest pain r/o acs anemia labs stable Subjective ROS Limited/Unobtainable: Yes Allergies: Coded Allergies: ARIPIPRAZOLE (Unverified Allergy, Unknown, 01/13/18) CYCLOBENZAPRINE (Unverified Allergy, Unknown, 09/27/17) MEPERIDINE (Unverified Allergy, Unknown, 09/27/17) METRONIDAZOLE (Verified Allergy, Unknown, 10/29/17) PROCHLORPERAZINE (Unverified Allergy, Unknown, 09/27/17) ZIPRASIDONE (Verified Allergy, Unknown, 10/29/17) Objective Last 24 Hour Vital Signs Date Time Temp Pulse Resp B/P (MAP) Pulse Ox O2 Delivery O2 Flow Rate FiO2 05/29/19 08:00 68 05/29/19 08:00 97.3 66 20 102/60 (74) 96 05/29/19 04:00 64 05/29/19 04:00 97.6 66 18 110/62 (78) 94 05/29/19 00:00 97.0 62 18 106/68 (81) 93 05/29/19 00:00 66 05/28/19 21:00 Room Air 05/28/19 20:00 74 05/28/19 20:00 98.8 75 17 95/62 (73) 91 05/28/19 16:00 64 05/28/19 16:00 97.3 65 19 99/68 (78) 99 05/28/19 14:20 Room Air 05/28/19 14:00 98.1 69 19 110/62 (78) 98 05/28/19 13:55 98.0 89 18 116/78 99 Room Air 05/28/19 13:13 98.6 05/28/19 11:09 98.6 Intake and Output 05/28/19 05/29/19 19:00 07:00 Intake Total 320 ml Balance 320 ml Intake Oral 320 ml # Voids 4 4 Laboratory Tests 05/29/19 07:20: White Blood Count 3.5L, Red Blood Count 4.29, Hemoglobin 12.6, Hematocrit 37.3, Mean Corpuscular Volume 87, Mean Corpuscular Hemoglobin 29.3, Mean Corpuscular Hemoglobin Concent 33.7, Red Cell Distribution Width 12.1, Platelet Count 261, Mean Platelet Volume 5.3L, Neutrophils (%) (Auto) 36.6L, Lymphocytes (%) (Auto) 40.8, Monocytes (%) (Auto) 17.5H, Eosinophils (%) (Auto) 3.3H, Basophils (%) ( Auto) 1.8, Sodium Level 140, Potassium Level 4.0, Chloride Level 103, Carbon Dioxide Level 27, Anion Gap 10, Blood Urea Nitrogen 13, Creatinine 0.7, Estimat Glomerular Filtration Rate > 60, Glucose Level 108H, Uric Acid 4.8, Calcium Level 10.2H, Phosphorus Level 4.4, Magnesium Level 1.8, Total Bilirubin 0.4, Direct Bilirubin < 0.1, Aspartate Amino Transf (AST/SGOT) 32, Alanine Aminotransferase (ALT/SGPT) 41, Alkaline Phosphatase 68, Troponin I 0.000, Total Protein 7.3, Albumin 3.5, Thyroid Stimulating Hormone (TSH) 0.778 Height (Feet): 5 Height (Inches): 3.00 Weight (Pounds): 145 Cardiovascular: normal rate Respiratory/Chest: lungs clear Abdomen: soft Emi Fuentes MD May 29, 2019 10:58
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
--- NOTE | 2019-05-29 11:58 | Cardiac Electrophysiology PN ---
Subjective Subjective [id number] Objective Last 24 Hour Vital Signs Date Time Temp Pulse Resp B/P (MAP) Pulse Ox O2 Delivery O2 Flow Rate FiO2 05/29/19 09:00 Room Air 05/29/19 08:00 68 05/29/19 08:00 97.3 66 20 102/60 (74) 96 05/29/19 04:00 64 05/29/19 04:00 97.6 66 18 110/62 (78) 94 05/29/19 00:00 97.0 62 18 106/68 (81) 93 05/29/19 00:00 66 05/28/19 21:00 Room Air 05/28/19 20:00 74 05/28/19 20:00 98.8 75 17 95/62 (73) 91 05/28/19 16:00 64 05/28/19 16:00 97.3 65 19 99/68 (78) 99 05/28/19 14:20 Room Air 05/28/19 14:00 98.1 69 19 110/62 (78) 98 05/28/19 13:55 98.0 89 18 116/78 99 Room Air 05/28/19 13:13 98.6 Intake and Output 05/28/19 05/29/19 18:59 06:59 Intake Total 320 ml Balance 320 ml Intake Oral 320 ml # Voids 4 4 Laboratory Tests Test 05/29/19 07:20 White Blood Count 3.5 K/UL (4.8-10.8) L Red Blood Count 4.29 M/UL (4.20-5.40) Hemoglobin 12.6 G/DL (12.0-16.0) Hematocrit 37.3 % (37.0-47.0) Mean Corpuscular Volume 87 FL (80-99) Mean Corpuscular Hemoglobin 29.3 PG (27.0-31.0) Mean Corpuscular Hemoglobin Concent 33.7 G/DL (32.0-36.0) Red Cell Distribution Width 12.1 % (11.6-14.8) Platelet Count 261 K/UL (150-450) Mean Platelet Volume 5.3 FL (6.5-10.1) L Neutrophils (%) (Auto) 36.6 % (45.0-75.0) L Lymphocytes (%) (Auto) 40.8 % (20.0-45.0) Monocytes (%) (Auto) 17.5 % (1.0-10.0) H Eosinophils (%) (Auto) 3.3 % (0.0-3.0) H Basophils (%) (Auto) 1.8 % (0.0-2.0) Sodium Level 140 MMOL/L (136-145) Potassium Level 4.0 MMOL/L (3.5-5.1) Chloride Level 103 MMOL/L (98-107) Carbon Dioxide Level 27 MMOL/L (21-32) Anion Gap 10 mmol/L (5-15) Blood Urea Nitrogen 13 mg/dL (7-18) Creatinine 0.7 MG/DL (0.55-1.30) Estimat Glomerular Filtration Rate > 60 mL/min (>60) Glucose Level 108 MG/DL (74-106) H Uric Acid 4.8 MG/DL (2.6-7.2) Calcium Level 10.2 MG/DL (8.5-10.1) H Phosphorus Level 4.4 MG/DL (2.5-4.9) Magnesium Level 1.8 MG/DL (1.8-2.4) Total Bilirubin 0.4 MG/DL (0.2-1.0) Direct Bilirubin < 0.1 MG/DL (0.0-0.3) Aspartate Amino Transf (AST/SGOT) 32 U/L (15-37) Alanine Aminotransferase (ALT/SGPT) 41 U/L (12-78) Alkaline Phosphatase 68 U/L (46-116) Troponin I 0.000 ng/mL (0.000-0.056) Total Protein 7.3 G/DL (6.4-8.2) Albumin 3.5 G/DL (3.4-5.0) Thyroid Stimulating Hormone (TSH) 0.778 uiU/mL (0.358-3.740) Microbiology Date/Time Source Procedure Growth Status 05/28/19 12:30 Rectum Received Ricky Velez MD May 29, 2019 11:58
[2019-05-29 12:00] VITALS: BP 97/64
--- NOTE | 2019-05-29 12:10 | Cardiac Electrophysiology PN ---
Assessment/Plan Assessment/Plan 1. SOB, Likley due to COPD and asthma. Ruled out for MD 2. CP, No MD. Stress test pending 3. HTN on Aldactone 4. Asthma 5. DJD DW RN Subjective Subjective Feeling better. No CP or SOB Objective Last 24 Hour Vital Signs Date Time Temp Pulse Resp B/P (MAP) Pulse Ox O2 Delivery O2 Flow Rate FiO2 05/29/19 09:00 Room Air 05/29/19 08:00 68 05/29/19 08:00 97.3 66 20 102/60 (74) 96 05/29/19 04:00 64 05/29/19 04:00 97.6 66 18 110/62 (78) 94 05/29/19 00:00 97.0 62 18 106/68 (81) 93 05/29/19 00:00 66 05/28/19 21:00 Room Air 05/28/19 20:00 74 05/28/19 20:00 98.8 75 17 95/62 (73) 91 05/28/19 16:00 64 05/28/19 16:00 97.3 65 19 99/68 (78) 99 05/28/19 14:20 Room Air 05/28/19 14:00 98.1 69 19 110/62 (78) 98 05/28/19 13:55 98.0 89 18 116/78 99 Room Air 05/28/19 13:13 98.6 Intake and Output 05/28/19 05/29/19 19:00 07:00 Intake Total 320 ml Balance 320 ml Intake Oral 320 ml # Voids 4 4 Laboratory Tests Test 05/29/19 07:20 White Blood Count 3.5 K/UL (4.8-10.8) L Red Blood Count 4.29 M/UL (4.20-5.40) Hemoglobin 12.6 G/DL (12.0-16.0) Hematocrit 37.3 % (37.0-47.0) Mean Corpuscular Volume 87 FL (80-99) Mean Corpuscular Hemoglobin 29.3 PG (27.0-31.0) Mean Corpuscular Hemoglobin Concent 33.7 G/DL (32.0-36.0) Red Cell Distribution Width 12.1 % (11.6-14.8) Platelet Count 261 K/UL (150-450) Mean Platelet Volume 5.3 FL (6.5-10.1) L Neutrophils (%) (Auto) 36.6 % (45.0-75.0) L Lymphocytes (%) (Auto) 40.8 % (20.0-45.0) Monocytes (%) (Auto) 17.5 % (1.0-10.0) H Eosinophils (%) (Auto) 3.3 % (0.0-3.0) H Basophils (%) (Auto) 1.8 % (0.0-2.0) Sodium Level 140 MMOL/L (136-145) Potassium Level 4.0 MMOL/L (3.5-5.1) Chloride Level 103 MMOL/L (98-107) Carbon Dioxide Level 27 MMOL/L (21-32) Anion Gap 10 mmol/L (5-15) Blood Urea Nitrogen 13 mg/dL (7-18) Creatinine 0.7 MG/DL (0.55-1.30) Estimat Glomerular Filtration Rate > 60 mL/min (>60) Glucose Level 108 MG/DL (74-106) H Uric Acid 4.8 MG/DL (2.6-7.2) Calcium Level 10.2 MG/DL (8.5-10.1) H Phosphorus Level 4.4 MG/DL (2.5-4.9) Magnesium Level 1.8 MG/DL (1.8-2.4) Total Bilirubin 0.4 MG/DL (0.2-1.0) Direct Bilirubin < 0.1 MG/DL (0.0-0.3) Aspartate Amino Transf (AST/SGOT) 32 U/L (15-37) Alanine Aminotransferase (ALT/SGPT) 41 U/L (12-78) Alkaline Phosphatase 68 U/L (46-116) Troponin I 0.000 ng/mL (0.000-0.056) Total Protein 7.3 G/DL (6.4-8.2) Albumin 3.5 G/DL (3.4-5.0) Thyroid Stimulating Hormone (TSH) 0.778 uiU/mL (0.358-3.740) Microbiology Date/Time Source Procedure Growth Status 05/28/19 12:30 Rectum Received Objective HEENT: PERRLA. NECK: Supple. No lymphadenopathy. CHEST: Clear to auscultation. CARDIOVASCULAR: Regular rate and rhythm. No murmurs or extra sounds. GASTROINTESTINAL: Soft, nontender, and nondistended. No organomegaly. EXTREMITIES: No edema. Ricky Velez MD May 29, 2019 12:10
[2019-05-29] MEDS ORDERED: Lexiscan 0.4mg/5ml syringe IV ONE (13:00)
--- NOTE | 2019-05-29 13:05 | Diagnostic Imaging Report ---
Indication: Right knee Pain 3 views of the right knee were obtained. Findings: There is joint space narrowing with marginal osteophyte formation and subchondral sclerosis. Bones are osteopenic. No definite joint effusion seen. No malalignment appreciated. IMPRESSION: Severe osteoarthritis
--- NOTE | 2019-05-29 15:51 | NUR ---
CASE MANAGEMENT:REVIEW 64 YR OLD FEMALE BIBA FROM [facility] CC; LT SIDED CHEST PAIN SI:CHEST PAIN.RT KNEE CONTUSION 98.6 67 16 110/65 99% ON RA WBC-3.8 IS: ASA PO CRUSHER OPERATOR NITRO SPRAY X1 CRUSHER OPERATOR IV MORPHINE CHEST XRAY : TO TELEMETRY 05/29/19 SI: CHEST PAIN. COPD 97.4 75 20 97/64 95% ON RA WBC-3.5 GLUCOSE+108 IS: ARIMIDEX PO QD COGENTIN PO QD MAG CITRATE PO QD SEROQUEL PO QD ALDACTONE PO QD COLACE PO TID NORCO PO Q6HRS PRN : TELEMETRY STATUS DCP: [facility] PLAN: STRESS TEST
[2019-05-29 16:00] VITALS: BP 106/60
--- NOTE | 2019-05-29 16:37 | NUR ---
*-* INSURANCE *-* ALL CLINICALS AND REVIEWS HAVE BEEN FAXED TO: [employer] no ref# yet #[phone] fax#[phone]
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
--- NOTE | 2019-05-29 19:30 | NUR ---
Received patient from [facility] DELCID. Patient in bed, on room air, no signs of respiratory distress. Bed in low position, locked, call light within reach. Bilateral scds on. Left ac 22 gauge iv intact, dressing dry.
--- NOTE | 2019-05-29 19:40 | NUR ---
HAND-OFF: Report given to Roderick/sylvia, pt in stable condition.
[2019-05-29 20:00] VITALS: BP 99/57
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
[2019-05-29] MEDS ORDERED: Lexiscan 0.4mg/5ml syringe IV PRN (21:45)
[2019-05-30] VITALS: BP 108/59
--- NOTE | 2019-05-30 | NUR ---
NURSE NOTES: Patient now NPO for leana in AM. Patient aware and verbalized understanding. Removed food items from room.
[2019-05-30 04:00] VITALS: BP 110/71
[2019-05-30] MEDS: HYDROcodone/Acetamin 5/325 tab ORAL PRN ×3 (04:21→20:49)
--- NOTE | 2019-05-30 06:25 | Hematology/Onc Progress Note ---
Assessment/Plan Assessment/Plan Assessment and Recs: # Leukopenia -- multiple etiologies could be related to underlying liver disease , medication-induced, infection versus viral syndrome --> peripheral smear has been ordered and does not show significant abnormalities --> Medications have been reviewed --> Continue to monitor for improvement, trend cbc --> Hep panel and HIV NEG --> US abd ordered to r/o cirrhosis and hepatosplenomegaly --> reverse isolation if ANC is <2000 # Breast cancer hx with left lumpectomy --> now appears to be in remission --> periodic mammograms as per pcp and obgyn # Chest pain --> r/o acs, reviewed recs by Dr. Velez --> lexican per cards # Contusion of right knee, initial encounter --> avoid nsaids, okay to continue tylenol # DJD # HTN # Prior cva The timing of this note does not necessarily reflect the time of the patient was seen. Greatly appreciate consultation. Subjective Constitutional: Denies: no symptoms, chills, fever, malaise, weakness, other HEENT: Denies: no symptoms, eye pain, blurred vision, tearing, double vision, ear pain, ear discharge, nose pain, nose congestion, throat pain, throat swelling, mouth pain, mouth swelling, other Cardiovascular: Denies: no symptoms, chest pain, edema, irregular heart rate, lightheadedness, palpitations, syncope, other Respiratory: Denies: no symptoms, cough, shortness of breath, SOB with excertion, SOB at rest, sputum, wheezing, other Genitourinary: Denies: no symptoms, burning, discharge, frequency, flank pain, hematuria, incontinence, pain, urgency, other Neurologic/Psychiatric: Denies: no symptoms, anxiety, depressed, emotional problems, headache, numbness, paresthesia, pre-existing deficit, seizure, tingling, tremors, weakness, other Endocrine: Denies: no symptoms, excessive sweating, flushing, intolerance to cold, intolerance to heat, increased hunger, increased thirst, increased urine, unexplained weight gain, unexplained weight loss, other Hematologic/Lymphatic: Denies: no symptoms, anemia, easy bleeding, easy bruising, adenopathy, other Allergies: Coded Allergies: ARIPIPRAZOLE (Unverified Allergy, Unknown, 01/13/18) CYCLOBENZAPRINE (Unverified Allergy, Unknown, 09/27/17) MEPERIDINE (Unverified Allergy, Unknown, 09/27/17) METRONIDAZOLE (Verified Allergy, Unknown, 10/29/17) PROCHLORPERAZINE (Unverified Allergy, Unknown, 09/27/17) ZIPRASIDONE (Verified Allergy, Unknown, 10/29/17) Subjective 05/29: for lexiscan for the am, no bleeding, labs noted, cbc pending Objective Objective Current Medications Medications (Trade) Dose Ordered Sig/Owen Route PRN Reason Start Time Stop Time Status Last Admin Dose Admin Acetaminophen (Tylenol) 650 mg Q6H PRN ORAL Mild Pain/Temp > 100.5 05/28/19 15:00 06/27/19 14:59 Acetaminophen/ Hydrocodone Bitart ([place] 5/325) 1 tab Q6H PRN ORAL For Pain scale 4-10 05/28/19 15:00 06/04/19 14:59 05/30/19 04:21 Anastrozole (Arimidex) 1 mg DAILY ORAL 05/29/19 09:00 06/28/19 08:59 05/29/19 08:55 Atorvastatin Calcium (Lipitor) 10 mg BEDTIME ORAL 05/28/19 21:00 06/27/19 20:59 05/29/19 21:27 Benztropine Mesylate (Cogentin) 1 mg DAILY ORAL 05/29/19 09:00 06/28/19 08:59 05/29/19 08:57 Chlorthalidone (Chlorthalidone) 25 mg DAILY ORAL 05/29/19 09:00 06/28/19 08:59 05/29/19 08:55 Docusate Sodium (Colace) 100 mg THREE TIMES A DAY ORAL 05/28/19 18:00 06/27/19 17:59 05/29/19 18:31 Magnesium Citrate (Citrate Of Magnesia) 150 ml DAILY ORAL 05/29/19 09:00 06/28/19 08:59 05/29/19 09:00 Quetiapine Fumarate (SEROqueL) 100 mg DAILY ORAL 05/29/19 09:00 06/28/19 08:59 05/29/19 08:55 Regadenoson (Lexiscan) 0.4 mg ONCE PRN IV stress test 05/29/19 21:45 05/31/19 23:59 Spironolactone (Aldactone) 25 mg DAILY ORAL 05/29/19 09:00 06/28/19 08:59 05/29/19 08:58 Last 24 Hour Vital Signs Date Time Temp Pulse Resp B/P (MAP) Pulse Ox O2 Delivery O2 Flow Rate FiO2 05/30/19 05:13 96.9 05/30/19 04:00 96.9 70 18 110/71 (84) 93 05/30/19 04:00 64 05/30/19 00:00 72 05/30/19 00:00 97.1 69 18 108/59 (75) 95 05/29/19 21:00 Room Air 05/29/19 21:00 Room Air 05/29/19 20:00 77 05/29/19 20:00 97.5 68 17 99/57 (71) 95 05/29/19 16:00 82 05/29/19 16:00 98.3 76 20 106/60 (75) 98 05/29/19 12:00 97.4 78 20 97/64 (75) 95 05/29/19 12:00 75 05/29/19 09:00 Room Air 05/29/19 08:00 68 05/29/19 08:00 97.3 66 20 102/60 (74) 96 05/29/19 04:00 64 05/29/19 04:00 97.6 66 18 110/62 (78) 94 05/29/19 00:00 97.0 62 18 106/68 (81) 93 05/29/19 00:00 66 05/28/19 21:00 Room Air 05/28/19 20:00 74 05/28/19 20:00 98.8 75 17 95/62 (73) 91 05/28/19 16:00 64 05/28/19 16:00 97.3 65 19 99/68 (78) 99 05/28/19 14:20 Room Air 05/28/19 14:00 98.1 69 19 110/62 (78) 98 05/28/19 13:55 98.0 89 18 116/78 99 Room Air 05/28/19 13:13 98.6 05/28/19 11:09 98.6 05/28/19 10:30 72 18 Room Air 05/28/19 10:30 98.6 72 18 105/71 98 Room Air 05/28/19 09:50 98.6 67 16 110/65 (80) 99 Room Air Intake and Output 05/29/19 05/30/19 19:00 07:00 Intake Total 300 ml Balance 300 ml Intake Oral 300 ml # Voids 4 4 # Bowel Movements 1 2 Labs Test 05/28/19 09:30 05/29/19 06:00 05/29/19 07:20 White Blood Count 3.8 K/UL (4.8-10.8) 3.5 K/UL (4.8-10.8) Red Blood Count 4.33 M/UL (4.20-5.40) 4.29 M/UL (4.20-5.40) Hemoglobin 12.6 G/DL (12.0-16.0) 12.6 G/DL (12.0-16.0) Hematocrit 37.4 % (37.0-47.0) 37.3 % (37.0-47.0) Mean Corpuscular Volume 86 FL (80-99) 87 FL (80-99) Mean Corpuscular Hemoglobin 29.2 PG (27.0-31.0) 29.3 PG (27.0-31.0) Mean Corpuscular Hemoglobin Concent 33.8 G/DL (32.0-36.0) 33.7 G/DL (32.0-36.0) Red Cell Distribution Width 12.0 % (11.6-14.8) 12.1 % (11.6-14.8) Platelet Count 278 K/UL (150-450) 261 K/UL (150-450) Mean Platelet Volume 5.2 FL (6.5-10.1) 5.3 FL (6.5-10.1) Neutrophils (%) (Auto) 46.4 % (45.0-75.0) 36.6 % (45.0-75.0) Lymphocytes (%) (Auto) 38.3 % (20.0-45.0) 40.8 % (20.0-45.0) Monocytes (%) (Auto) 12.1 % (1.0-10.0) 17.5 % (1.0-10.0) Eosinophils (%) (Auto) 1.5 % (0.0-3.0) 3.3 % (0.0-3.0) Basophils (%) (Auto) 1.8 % (0.0-2.0) 1.8 % (0.0-2.0) Sodium Level 141 MMOL/L (136-145) 140 MMOL/L (136-145) Potassium Level 3.9 MMOL/L (3.5-5.1) 4.0 MMOL/L (3.5-5.1) Chloride Level 103 MMOL/L (98-107) 103 MMOL/L (98-107) Carbon Dioxide Level 27 MMOL/L (21-32) 27 MMOL/L (21-32) Anion Gap 11 mmol/L (5-15) 10 mmol/L (5-15) Blood Urea Nitrogen 13 mg/dL (7-18) 13 mg/dL (7-18) Creatinine 0.7 MG/DL (0.55-1.30) 0.7 MG/DL (0.55-1.30) Estimat Glomerular Filtration Rate > 60 mL/min (>60) > 60 mL/min (>60) Glucose Level 89 MG/DL (74-106) 108 MG/DL (74-106) Calcium Level 10.5 MG/DL (8.5-10.1) 10.2 MG/DL (8.5-10.1) Total Bilirubin 0.5 MG/DL (0.2-1.0) 0.4 MG/DL (0.2-1.0) Aspartate Amino Transf (AST/SGOT) 35 U/L (15-37) 32 U/L (15-37) Alanine Aminotransferase (ALT/SGPT) 43 U/L (12-78) 41 U/L (12-78) Alkaline Phosphatase 76 U/L (46-116) 68 U/L (46-116) Troponin I 0.000 ng/mL (0.000-0.056) 0.000 ng/mL (0.000-0.056) Total Protein 7.6 G/DL (6.4-8.2) 7.3 G/DL (6.4-8.2) Albumin 3.6 G/DL (3.4-5.0) 3.5 G/DL (3.4-5.0) Globulin 4.0 g/dL Albumin/Globulin Ratio 0.9 (1.0-2.7) HIV (1&2) Antibody Rapid Negative (NEGATIVE) Uric Acid 4.8 MG/DL (2.6-7.2) Phosphorus Level 4.4 MG/DL (2.5-4.9) Magnesium Level 1.8 MG/DL (1.8-2.4) Direct Bilirubin < 0.1 MG/DL (0.0-0.3) Thyroid Stimulating Hormone (TSH) 0.778 uiU/mL (0.358-3.740) Height (Feet): 5 Height (Inches): 3.00 Weight (Pounds): 145 Objective Physical Exam: Vitals: reviewed General: NAD HEENT: nc, at Neck: supple Chest: clear breath sounds bilaterally Cardiovascular: RRR, no s3, s4 Abdomen: soft, nontender, nd Extremities: no cce, normal range of motion Neuro: alert and oriented Trever Zambrano MD May 30, 2019 06:25
[2019-05-30 07:24] LABS: HEMATOCRIT 36.9 % (37.0-47.0); HEMOGLOBIN 12.6 G/DL (12.0-16.0); MEAN CORPUSCULAR VOLUME 87 FL (80-99); PLATELET COUNT 250 K/UL (150-450); RED BLOOD COUNT 4.24 M/UL (4.20-5.40); RED CELL DISTRIBUTION WIDTH 12.2 % (11.6-14.8); WHITE BLOOD COUNT 3.4 K/UL (4.8-10.8)
--- NOTE | 2019-05-30 07:30 | NUR ---
NURSE NOTES: pt in bed NPO awaiting to start stress test. Pt awake AOX4. IV site intact and patent. Bed in lowest position and locked. Bed alarm is on, side rails up x2, pt using SCD's. Continue practice advisor, no signs of cardiac or respiratory distress at this time. pt does not report any pain. Will continue to care for pt and follow plans of care.
[2019-05-30 08:47] VITALS: BP 107/53
[2019-05-30] MEDS: Spironolactone 50mg tab ORAL SCH (09:55)
[2019-05-30] MEDS: Benztropine 1mg tab ORAL SCH (09:56)
[2019-05-30] MEDS: Magnesium Citrate Liq Btl ORAL SCH (09:58)
[2019-05-30] MEDS: Docusate 100mg cap ORAL SCH ×3 (09:58→17:25)
[2019-05-30] MEDS: Anastrazole 1mg tab ORAL SCH (09:58)
--- NOTE | 2019-05-30 10:58 | Cardiac Electrophysiology PN ---
Assessment/Plan Assessment/Plan 1. SOB, Likley due to COPD and asthma. Ruled out for ND 2. CP, No ND. Stress test pending today 3. HTN on Aldactone 4. Asthma 5. DJD DW RN Subjective Subjective Feeling better. No CP or SOB. Awaiting 2nd part of stress test Objective Last 24 Hour Vital Signs Date Time Temp Pulse Resp B/P (MAP) Pulse Ox O2 Delivery O2 Flow Rate FiO2 05/30/19 08:47 97.3 64 18 107/53 (71) 93 05/30/19 08:40 Room Air 05/30/19 05:13 96.9 05/30/19 04:00 96.9 70 18 110/71 (84) 93 05/30/19 04:00 64 05/30/19 00:00 72 05/30/19 00:00 97.1 69 18 108/59 (75) 95 05/29/19 21:00 Room Air 05/29/19 21:00 Room Air 05/29/19 20:00 77 05/29/19 20:00 97.5 68 17 99/57 (71) 95 05/29/19 16:00 82 05/29/19 16:00 98.3 76 20 106/60 (75) 98 05/29/19 12:00 97.4 78 20 97/64 (75) 95 05/29/19 12:00 75 Intake and Output 05/29/19 05/30/19 19:00 07:00 Intake Total 300 ml Balance 300 ml Intake Oral 300 ml # Voids 4 4 # Bowel Movements 1 2 Laboratory Tests Test 05/30/19 06:19 White Blood Count 3.4 K/UL (4.8-10.8) L Red Blood Count 4.24 M/UL (4.20-5.40) Hemoglobin 12.6 G/DL (12.0-16.0) Hematocrit 36.9 % (37.0-47.0) L Mean Corpuscular Volume 87 FL (80-99) Mean Corpuscular Hemoglobin 29.6 PG (27.0-31.0) Mean Corpuscular Hemoglobin Concent 34.1 G/DL (32.0-36.0) Red Cell Distribution Width 12.2 % (11.6-14.8) Platelet Count 250 K/UL (150-450) Mean Platelet Volume 5.4 FL (6.5-10.1) L Neutrophils (%) (Auto) % (45.0-75.0) Lymphocytes (%) (Auto) % (20.0-45.0) Monocytes (%) (Auto) % (1.0-10.0) Eosinophils (%) (Auto) % (0.0-3.0) Basophils (%) (Auto) % (0.0-2.0) Differential Total Cells Counted 100 Neutrophils % (Manual) 25 % (45-75) L Lymphocytes % (Manual) 59 % (20-45) H Monocytes % (Manual) 12 % (1-10) H Eosinophils % (Manual) 3 % (0-3) Basophils % (Manual) 1 % (0-2) Band Neutrophils 0 % (0-8) Platelet Estimate Adequate Platelet Morphology Normal Red Blood Cell Morphology Normal Microbiology Date/Time Source Procedure Growth Status 05/28/19 12:30 Nasal Nares Left MRSA Culture - Final NO METHICILLIN RESISTANT STAPH AUREUS... Complete 05/28/19 12:30 Rectum Received Objective HEENT: PERRLA. NECK: Supple. No lymphadenopathy. CHEST: Clear to auscultation. CARDIOVASCULAR: Regular rate and rhythm. No murmurs or extra sounds. GASTROINTESTINAL: Soft, nontender, and nondistended. No organomegaly. EXTREMITIES: No edema. Ricky Velez MD May 30, 2019 10:58
--- NOTE | 2019-05-30 11:17 | NUR ---
*-* INSURANCE *-* ALL CLINICALS AND REVIEWS HAVE BEEN FAXED TO: [employer] no ref# yet #[phone] fax#[phone]
--- NOTE | 2019-05-30 13:29 | NUR ---
CASE MANAGEMENT:REVIEW 05/30/19 SI: COPD. ASTHMA. CHEST PAIN 97.3 64 18 107/53 93% ON RA IS: IV LEXISCAN X1 ARIMIDEX PO QD COGENTIN PO QD SEROQUEL PO QD ALDACTONE PO QD : TELEMETRY STATUS DCP: KARAN PANDEY
[2019-05-30 16:00] VITALS: BP 97/58
--- NOTE | 2019-05-30 17:08 | Diagnostic Imaging Report ---
Indications: Chest pain Technique: Single day single isotope protocol utilized. Initially, resting images obtained using IV administration 10.9 millicuries 99M technetium Myoview. Subsequently, patient underwent lexiscan stress testing. See cardiology report for details. During Lexiscan infusion, IV administration 31.7 mCi 99 M technetium Myoview. SPECT and planar images obtained. SPECT images gated to 8 phases of the cardiac cycle were also obtained, and reformatted into cine images for evaluation of ejection fraction. Comparison: 09/28/2017 Findings: Per cardiology report, patient experienced chest pain, flushing, shortness of breath during infusion. Per cardiology report, resting EKG demonstrates normal sinus rhythm. No ST changes noted during infusion. Imaging demonstrates equivocal tiny focus of decreased perfusion in the apex on the post stress images which is less evident on the resting images. Calculated post stress ejection fraction 63%. No focal wall motion abnormality Impression: Nonischemic clinical response to pharmacologic stress, per cardiology report Nonischemic electrocardiographic response to pharmacologic stress, per cardiology report Equivocal tiny focus of reversible decreased perfusion at the cardiac apex. Suspect that this represents an artifact, but small focus of ischemia also possible. No other evidence of ischemia, at level of stress achieved Calculated post stress ejection fraction 63%
--- NOTE | 2019-05-30 19:42 | NUR ---
HAND-OFF: Report given to Roma/RN, pt stable condition.
--- NOTE | 2019-05-30 19:53 | NUR ---
NURSE NOTES: RECEIVED PATIENT RESTING IN BED. FALL PRECAUTIONS IN PLACE: CALL LIGHT AND BEDSIDE TABLE WITHIN REACH. PLACED COMMODE AT BEDSIDE. BED IN LOW POSITION PLAN OF CARE REVIEWED.
[2019-05-30 20:00] VITALS: BP 94/72
--- NOTE | 2019-05-30 20:43 | General Progress Note ---
Assessment/Plan Problem List: (1) anemia (2) Chest pain ICD Codes: R07.9 - Chest pain, unspecified SNOMED: [id number] (3) Osteoarthritis ICD Codes: M19.90 - Unspecified osteoarthritis, unspecified site SNOMED: 448062835 Status: progressing Assessment/Plan: reviewed chart and labs chest pain r/o acs check trop Subjective ROS Limited/Unobtainable: Yes Allergies: Coded Allergies: ARIPIPRAZOLE (Unverified Allergy, Unknown, 01/13/18) CYCLOBENZAPRINE (Unverified Allergy, Unknown, 09/27/17) MEPERIDINE (Unverified Allergy, Unknown, 09/27/17) METRONIDAZOLE (Verified Allergy, Unknown, 10/29/17) PROCHLORPERAZINE (Unverified Allergy, Unknown, 09/27/17) ZIPRASIDONE (Verified Allergy, Unknown, 10/29/17) Objective Last 24 Hour Vital Signs Date Time Temp Pulse Resp B/P (MAP) Pulse Ox O2 Delivery O2 Flow Rate FiO2 05/30/19 16:00 71 05/30/19 16:00 97.8 60 18 97/58 (71) 98 05/30/19 12:00 66 05/30/19 08:47 97.3 64 18 107/53 (71) 93 05/30/19 08:40 Room Air 05/30/19 08:00 76 05/30/19 05:13 96.9 05/30/19 04:00 96.9 70 18 110/71 (84) 93 05/30/19 04:00 64 05/30/19 00:00 72 05/30/19 00:00 97.1 69 18 108/59 (75) 95 05/29/19 21:00 Room Air 05/29/19 21:00 Room Air Intake and Output 05/29/19 05/30/19 19:00 07:00 Intake Total 300 ml Balance 300 ml Intake Oral 300 ml # Voids 4 4 # Bowel Movements 1 2 Laboratory Tests 05/30/19 06:19: White Blood Count 3.4L, Red Blood Count 4.24, Hemoglobin 12.6, Hematocrit 36.9L , Mean Corpuscular Volume 87, Mean Corpuscular Hemoglobin 29.6, Mean Corpuscular Hemoglobin Concent 34.1, Red Cell Distribution Width 12.2, Platelet Count 250, Mean Platelet Volume 5.4L, Neutrophils (%) (Auto) , Lymphocytes (%) ( Auto) , Monocytes (%) (Auto) , Eosinophils (%) (Auto) , Basophils (%) (Auto) , Differential Total Cells Counted 100, Neutrophils % (Manual) 25L, Lymphocytes % (Manual) 59H, Monocytes % (Manual) 12H, Eosinophils % (Manual) 3, Basophils % ( Manual) 1, Band Neutrophils 0, Platelet Estimate Adequate, Platelet Morphology Normal, Red Blood Cell Morphology Normal Height (Feet): 5 Height (Inches): 3.00 Weight (Pounds): 145 Emi Fuentes MD May 30, 2019 20:43
[2019-05-31 04:00] VITALS: BP 111/72
[2019-05-31] MEDS: HYDROcodone/Acetamin 5/325 tab ORAL PRN (04:14)
--- NOTE | 2019-05-31 06:24 | Hematology/Onc Progress Note ---
Assessment/Plan Assessment/Plan Assessment and Recs: # Leukopenia -- multiple etiologies could be related to underlying liver disease , medication-induced, infection versus viral syndrome --> peripheral smear has been ordered and does not show significant abnormalities --> Medications have been reviewed --> Continue to monitor for improvement, trend cbc --> Hep panel and HIV NEG --> US abd ordered to r/o cirrhosis and hepatosplenomegaly-->prior ct showed unremarkable spleen --> reverse isolation if ANC is <2000 # Breast cancer hx with left lumpectomy --> now appears to be in remission --> continue on Arimidex as per outpatient --> periodic mammograms as per pcp and obgyn # Chest pain --> r/o acs, reviewed recs by Dr. Velez, stress test --> lexican per cards # Contusion of right knee, initial encounter --> avoid nsaids, okay to continue tylenol # DJD # HTN # Prior cva The timing of this note does not necessarily reflect the time of the patient was seen. Greatly appreciate consultation. Subjective Constitutional: Denies: no symptoms, chills, fever, malaise, weakness, other HEENT: Denies: no symptoms, eye pain, blurred vision, tearing, double vision, ear pain, ear discharge, nose pain, nose congestion, throat pain, throat swelling, mouth pain, mouth swelling, other Cardiovascular: Denies: no symptoms, chest pain, edema, irregular heart rate, lightheadedness, palpitations, syncope, other Respiratory: Denies: no symptoms, cough, shortness of breath, SOB with excertion, SOB at rest, sputum, wheezing, other Gastrointestinal/Abdominal: Denies: no symptoms, abdomen distended, abdominal pain, black stools, tarry stools, blood in stool, constipated, diarrhea, difficulty swallowing, nausea, poor appetite, poor fluid intake, rectal bleeding , vomiting, other Genitourinary: Denies: no symptoms, burning, discharge, frequency, flank pain, hematuria, incontinence, pain, urgency, other Endocrine: Denies: no symptoms, excessive sweating, flushing, intolerance to cold, intolerance to heat, increased hunger, increased thirst, increased urine, unexplained weight gain, unexplained weight loss, other Allergies: Coded Allergies: ARIPIPRAZOLE (Unverified Allergy, Unknown, 01/13/18) CYCLOBENZAPRINE (Unverified Allergy, Unknown, 09/27/17) MEPERIDINE (Unverified Allergy, Unknown, 09/27/17) METRONIDAZOLE (Verified Allergy, Unknown, 10/29/17) PROCHLORPERAZINE (Unverified Allergy, Unknown, 09/27/17) ZIPRASIDONE (Verified Allergy, Unknown, 10/29/17) Subjective 05/29: for lexiscan for the am, no bleeding, labs noted, cbc pending 05/30: no bleeding, no fevers, arimidex, cbc ordered Objective Objective Current Medications Medications (Trade) Dose Ordered Sig/Owen Route PRN Reason Start Time Stop Time Status Last Admin Dose Admin Acetaminophen (Tylenol) 650 mg Q6H PRN ORAL Mild Pain/Temp > 100.5 05/28/19 15:00 06/27/19 14:59 05/30/19 18:37 Acetaminophen/ Hydrocodone Bitart ([place] 5/325) 1 tab Q6H PRN ORAL For Pain scale 4-10 05/28/19 15:00 06/04/19 14:59 05/31/19 04:14 Anastrozole (Arimidex) 1 mg DAILY ORAL 05/29/19 09:00 06/28/19 08:59 05/30/19 09:58 Atorvastatin Calcium (Lipitor) 10 mg BEDTIME ORAL 05/28/19 21:00 06/27/19 20:59 05/30/19 20:48 Benztropine Mesylate (Cogentin) 1 mg DAILY ORAL 05/29/19 09:00 06/28/19 08:59 05/30/19 09:56 Chlorthalidone (Chlorthalidone) 25 mg DAILY ORAL 05/29/19 09:00 06/28/19 08:59 05/30/19 09:56 Docusate Sodium (Colace) 100 mg THREE TIMES A DAY ORAL 05/28/19 18:00 06/27/19 17:59 05/30/19 12:35 Magnesium Citrate (Citrate Of Magnesia) 150 ml DAILY ORAL 05/29/19 09:00 06/28/19 08:59 05/30/19 09:58 Quetiapine Fumarate (SEROqueL) 100 mg DAILY ORAL 05/29/19 09:00 06/28/19 08:59 05/30/19 09:55 Regadenoson (Lexiscan) 0.4 mg ONCE PRN IV stress test 05/29/19 21:45 05/31/19 23:59 05/30/19 12:52 Spironolactone (Aldactone) 25 mg DAILY ORAL 05/29/19 09:00 06/28/19 08:59 05/30/19 09:55 Last 24 Hour Vital Signs Date Time Temp Pulse Resp B/P (MAP) Pulse Ox O2 Delivery O2 Flow Rate FiO2 05/31/19 04:00 97.9 74 18 111/72 (85) 92 05/31/19 04:00 74 05/31/19 00:00 66 05/30/19 21:00 Room Air 05/30/19 20:00 97.2 81 18 94/72 (79) 98 05/30/19 20:00 79 05/30/19 16:00 71 05/30/19 16:00 97.8 60 18 97/58 (71) 98 05/30/19 12:00 66 05/30/19 08:47 97.3 64 18 107/53 (71) 93 05/30/19 08:40 Room Air 05/30/19 08:00 76 05/30/19 05:13 96.9 05/30/19 04:00 96.9 70 18 110/71 (84) 93 05/30/19 04:00 64 05/30/19 00:00 72 05/30/19 00:00 97.1 69 18 108/59 (75) 95 05/29/19 21:00 Room Air 05/29/19 21:00 Room Air 05/29/19 20:00 77 05/29/19 20:00 97.5 68 17 99/57 (71) 95 05/29/19 16:00 82 05/29/19 16:00 98.3 76 20 106/60 (75) 98 05/29/19 12:00 97.4 78 20 97/64 (75) 95 05/29/19 12:00 75 05/29/19 09:00 Room Air 05/29/19 08:00 68 05/29/19 08:00 97.3 66 20 102/60 (74) 96 Intake and Output 05/30/19 05/31/19 19:00 07:00 Intake Total 240 ml 240 ml Balance 240 ml 240 ml Intake Oral 240 ml 240 ml # Voids 3 2 # Bowel Movements 1 Labs Test 05/28/19 09:30 05/29/19 06:00 05/29/19 07:20 05/30/19 06:19 White Blood Count 3.8 K/UL (4.8-10.8) 3.5 K/UL (4.8-10.8) 3.4 K/UL (4.8-10.8) Red Blood Count 4.33 M/UL (4.20-5.40) 4.29 M/UL (4.20-5.40) 4.24 M/UL (4.20-5.40) Hemoglobin 12.6 G/DL (12.0-16.0) 12.6 G/DL (12.0-16.0) 12.6 G/DL (12.0-16.0) Hematocrit 37.4 % (37.0-47.0) 37.3 % (37.0-47.0) 36.9 % (37.0-47.0) Mean Corpuscular Volume 86 FL (80-99) 87 FL (80-99) 87 FL (80-99) Mean Corpuscular Hemoglobin 29.2 PG (27.0-31.0) 29.3 PG (27.0-31.0) 29.6 PG (27.0-31.0) Mean Corpuscular Hemoglobin Concent 33.8 G/DL (32.0-36.0) 33.7 G/DL (32.0-36.0) 34.1 G/DL (32.0-36.0) Red Cell Distribution Width 12.0 % (11.6-14.8) 12.1 % (11.6-14.8) 12.2 % (11.6-14.8) Platelet Count 278 K/UL (150-450) 261 K/UL (150-450) 250 K/UL (150-450) Mean Platelet Volume 5.2 FL (6.5-10.1) 5.3 FL (6.5-10.1) 5.4 FL (6.5-10.1) Neutrophils (%) (Auto) 46.4 % (45.0-75.0) 36.6 % (45.0-75.0) % (45.0-75.0) Lymphocytes (%) (Auto) 38.3 % (20.0-45.0) 40.8 % (20.0-45.0) % (20.0-45.0) Monocytes (%) (Auto) 12.1 % (1.0-10.0) 17.5 % (1.0-10.0) % (1.0-10.0) Eosinophils (%) (Auto) 1.5 % (0.0-3.0) 3.3 % (0.0-3.0) % (0.0-3.0) Basophils (%) (Auto) 1.8 % (0.0-2.0) 1.8 % (0.0-2.0) % (0.0-2.0) Sodium Level 141 MMOL/L (136-145) 140 MMOL/L (136-145) Potassium Level 3.9 MMOL/L (3.5-5.1) 4.0 MMOL/L (3.5-5.1) Chloride Level 103 MMOL/L (98-107) 103 MMOL/L (98-107) Carbon Dioxide Level 27 MMOL/L (21-32) 27 MMOL/L (21-32) Anion Gap 11 mmol/L (5-15) 10 mmol/L (5-15) Blood Urea Nitrogen 13 mg/dL (7-18) 13 mg/dL (7-18) Creatinine 0.7 MG/DL (0.55-1.30) 0.7 MG/DL (0.55-1.30) Estimat Glomerular Filtration Rate > 60 mL/min (>60) > 60 mL/min (>60) Glucose Level 89 MG/DL (74-106) 108 MG/DL (74-106) Calcium Level 10.5 MG/DL (8.5-10.1) 10.2 MG/DL (8.5-10.1) Total Bilirubin 0.5 MG/DL (0.2-1.0) 0.4 MG/DL (0.2-1.0) Aspartate Amino Transf (AST/SGOT) 35 U/L (15-37) 32 U/L (15-37) Alanine Aminotransferase (ALT/SGPT) 43 U/L (12-78) 41 U/L (12-78) Alkaline Phosphatase 76 U/L (46-116) 68 U/L (46-116) Troponin I 0.000 ng/mL (0.000-0.056) 0.000 ng/mL (0.000-0.056) Total Protein 7.6 G/DL (6.4-8.2) 7.3 G/DL (6.4-8.2) Albumin 3.6 G/DL (3.4-5.0) 3.5 G/DL (3.4-5.0) Globulin 4.0 g/dL Albumin/Globulin Ratio 0.9 (1.0-2.7) HIV (1&2) Antibody Rapid Negative (NEGATIVE) Uric Acid 4.8 MG/DL (2.6-7.2) Phosphorus Level 4.4 MG/DL (2.5-4.9) Magnesium Level 1.8 MG/DL (1.8-2.4) Direct Bilirubin < 0.1 MG/DL (0.0-0.3) Thyroid Stimulating Hormone (TSH) 0.778 uiU/mL (0.358-3.740) Differential Total Cells Counted 100 Neutrophils % (Manual) 25 % (45-75) Lymphocytes % (Manual) 59 % (20-45) Monocytes % (Manual) 12 % (1-10) Eosinophils % (Manual) 3 % (0-3) Basophils % (Manual) 1 % (0-2) Band Neutrophils 0 % (0-8) Platelet Estimate Adequate Platelet Morphology Normal Red Blood Cell Morphology Normal Height (Feet): 5 Height (Inches): 3.00 Weight (Pounds): 151 Objective Physical Exam: Vitals: reviewed General: NAD HEENT: nc, at Neck: supple Chest: clear breath sounds bilaterally Cardiovascular: RRR, no s3, s4 Abdomen: soft, nontender, nd Extremities: no cce, normal range of motion Neuro: alert and oriented Trever Zambrano MD May 31, 2019 06:24
--- NOTE | 2019-05-31 07:15 | NUR ---
HAND-OFF: Report given to FARHANA RODRIGUEZ. PATIENT RESTING IN BED, NO SIGNS OF DISTRESS NOTED.
[2019-05-31 07:26] LABS: BASOPHILS % (AUTO) 1.2 % (0.0-2.0); EOSINOPHILS % (AUTO) 2.9 % (0.0-3.0); HEMATOCRIT 39.7 % (37.0-47.0); HEMOGLOBIN 13.2 G/DL (12.0-16.0); LYMPHOCYTES % (AUTO) 43.9 % (20.0-45.0); MEAN CORPUSCULAR VOLUME 87 FL (80-99); MONOCYTES % (AUTO) 11.5 % (1.0-10.0); NEUTROPHILS % (AUTO) 40.6 % (45.0-75.0); PLATELET COUNT 273 K/UL (150-450); RED BLOOD COUNT 4.56 M/UL (4.20-5.40); WHITE BLOOD COUNT 4.2 K/UL (4.8-10.8)
--- NOTE | 2019-05-31 07:30 | Cardiac Electrophysiology PN ---
Assessment/Plan Status Narrative Stress test: Equivocal tiny focus of reversible decreased perfusion at the cardiac apex. Suspect that this represents an artifact, but small focus of ischemia also possible. No other evidence of ischemia, at level of stress achieved Assessment/Plan 1. SOB, Likley due to COPD and asthma. Ruled out for VT 2. CP, No VT. Stress test suggestive of tiny reversible defect at apex that is likely artifact 3. HTN on Aldactone 4. Asthma 5. DJD DW RN Subjective Subjective Feeling better. No CP or SOB. Asking for [place]. Had stress test Objective Last 24 Hour Vital Signs Date Time Temp Pulse Resp B/P (MAP) Pulse Ox O2 Delivery O2 Flow Rate FiO2 05/31/19 04:00 97.9 74 18 111/72 (85) 92 05/31/19 04:00 74 05/31/19 00:00 66 05/30/19 21:00 Room Air 05/30/19 20:00 97.2 81 18 94/72 (79) 98 05/30/19 20:00 79 05/30/19 16:00 71 05/30/19 16:00 97.8 60 18 97/58 (71) 98 05/30/19 12:00 66 05/30/19 08:47 97.3 64 18 107/53 (71) 93 05/30/19 08:40 Room Air 05/30/19 08:00 76 Intake and Output 05/30/19 05/31/19 19:00 07:00 Intake Total 240 ml 240 ml Balance 240 ml 240 ml Intake Oral 240 ml 240 ml # Voids 3 2 # Bowel Movements 1 Laboratory Tests Test 05/31/19 06:19 White Blood Count Pending Red Blood Count Pending Hemoglobin Pending Hematocrit Pending Mean Corpuscular Volume Pending Mean Corpuscular Hemoglobin Pending Mean Corpuscular Hemoglobin Concent Pending Red Cell Distribution Width Pending Platelet Count Pending Mean Platelet Volume Pending Neutrophils (%) (Auto) Pending Lymphocytes (%) (Auto) Pending Monocytes (%) (Auto) Pending Eosinophils (%) (Auto) Pending Basophils (%) (Auto) Pending Microbiology Date/Time Source Procedure Growth Status 05/28/19 12:30 Nasal Nares Left MRSA Culture - Final NO METHICILLIN RESISTANT STAPH AUREUS... Complete 05/28/19 12:30 Rectum Received Objective HEENT: PERRLA. NECK: Supple. No lymphadenopathy. CHEST: Clear to auscultation. CARDIOVASCULAR: Regular rate and rhythm. No murmurs or extra sounds. GASTROINTESTINAL: Soft, nontender, and nondistended. No organomegaly. EXTREMITIES: No edema. Ricky Velez MD May 31, 2019 07:30
[2019-05-31 08:00] VITALS: BP 99/54
--- NOTE | 2019-05-31 08:00 | NUR ---
NURSE NOTES: PER DR. RUANO, PATIENT CLEARED FROM CARDIAC STANDPOINT.
--- NOTE | 2019-05-31 08:00 | NUR ---
NURSE NOTES: RECEIVED REPORT FROM FARHANA MURILLO. PATIENT IN BED WITH HOB ELEVATED TO 45 DEGREES. EATING BREAKFAST WITH NO COMPLAINTS OF PAIN AT THIS TIME. BREATHING IS EVEN AND UNLABORED ON ROOM AIR, NO S/SX OF DISTRESS AT THIS TIME. CALL LIGHT IN REACH. WILL CONTINUE TO MONITOR.
[2019-05-31] MEDS: Anastrazole 1mg tab ORAL SCH (08:49)
[2019-05-31] MEDS: Benztropine 1mg tab ORAL SCH (08:50)
[2019-05-31] MEDS: Docusate 100mg cap ORAL SCH (08:50)
[2019-05-31] MEDS: Spironolactone 50mg tab ORAL SCH (08:51)
[2019-05-31] MEDS: Magnesium Citrate Liq Btl ORAL SCH ×2 (08:58→09:00)
--- NOTE | 2019-05-31 09:08 | General Progress Note ---
Assessment/Plan Problem List: (1) anemia (2) Chest pain ICD Codes: R07.9 - Chest pain, unspecified SNOMED: 48818177 (3) Osteoarthritis ICD Codes: M19.90 - Unspecified osteoarthritis, unspecified site SNOMED: 180481601 Status: progressing Assessment/Plan: cleared by dr salinas for dc so dc patient already Subjective Allergies: Coded Allergies: ARIPIPRAZOLE (Unverified Allergy, Unknown, 01/13/18) CYCLOBENZAPRINE (Unverified Allergy, Unknown, 09/27/17) MEPERIDINE (Unverified Allergy, Unknown, 09/27/17) METRONIDAZOLE (Verified Allergy, Unknown, 10/29/17) PROCHLORPERAZINE (Unverified Allergy, Unknown, 09/27/17) ZIPRASIDONE (Verified Allergy, Unknown, 10/29/17) Objective Last 24 Hour Vital Signs Date Time Temp Pulse Resp B/P (MAP) Pulse Ox O2 Delivery O2 Flow Rate FiO2 05/31/19 08:00 97.0 68 18 99/54 (69) 94 18 05/31/19 04:00 97.9 74 18 111/72 (85) 92 05/31/19 04:00 74 05/31/19 00:00 66 05/30/19 21:00 Room Air 05/30/19 20:00 97.2 81 18 94/72 (79) 98 05/30/19 20:00 79 05/30/19 16:00 71 05/30/19 16:00 97.8 60 18 97/58 (71) 98 05/30/19 12:00 66 Intake and Output 05/30/19 05/31/19 19:00 07:00 Intake Total 240 ml 240 ml Balance 240 ml 240 ml Intake Oral 240 ml 240 ml # Voids 3 2 # Bowel Movements 1 Laboratory Tests 05/31/19 06:19: White Blood Count 4.2L, Red Blood Count 4.56, Hemoglobin 13.2, Hematocrit 39.7, Mean Corpuscular Volume 87, Mean Corpuscular Hemoglobin 28.9, Mean Corpuscular Hemoglobin Concent 33.2, Red Cell Distribution Width 12.0, Platelet Count 273, Mean Platelet Volume 5.6L, Neutrophils (%) (Auto) 40.6L, Lymphocytes (%) (Auto) 43.9, Monocytes (%) (Auto) 11.5H, Eosinophils (%) (Auto) 2.9, Basophils (%) ( Auto) 1.2 Height (Feet): 5 Height (Inches): 3.00 Weight (Pounds): 151 Emi Fuentes MD May 31, 2019 09:08
--- NOTE | 2019-05-31 11:09 | NUR ---
NURSE NOTES: PATIENT DISCHARGED IN STABLE CONDITION. IV LINE D/C. TELEMONITOR DISCONNECTED. REVIEWED DISCHARGE PAPERWORK WITH PATIENT WITH NO QUESTIONS. NO COMPLAINTS OF ANY PAIN OF DISCOMFORT. AMBULATED TO VALERIE ALMEIDA TO TAKE HER BACK TO [facility].
--- NOTE | 2019-05-31 15:14 | NUR ---
DISCHARGE PATIENT DID NOT COME FROM A INTERMEDIATE PATIENT CAME FROM "[facility]" ASSISTED LIVING NURSING COORDINATED DISCHARGE
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
--- NOTE | 2019-06-12 09:36 | CDS Physician Query ---
Clarification is required for compliance, coding accuracy, and to reflect severity of illness for this patient Dear Dr. Velez, Date 06.12.19 CDS: Blayne Dickey Please document the suspected etiology of Chest Pain: Assessment/Plan 1. SOB, Likley due to COPD and asthma. Ruled out for [facility] 2. CP, No [facility]. 3. Asthma 4. DJD [ ] Aortic dissection [ ] Acute myocardial infarction [ ] Acute Coronary Syndrome [ ] Pericarditis [ ] Anxiety [ ] Cancer [ ] Pneumonia [ ] Costochondritis [ ] Pneumothorax [ ] GERD/Esophagitis [ ] Pulmonary embolism [ ] Other: [ ] Unable to determine Present on Admission: [ ] Yes [ ] No [ ] Clinically Undetermined Physician signature Date Please also document in your Progress Notes and/or Discharge Summary and indicate if the condition was present on admission. MTDD
== END 2019-05-31 11:00 | DRG 203 ==
LOC: EDBD 09:54 → EMR 10:45 → 2E 12:04 → EDBEDREQ 12:37 → 2E 14:00
DX: R07.89 Other chest pain (principal); J45.909 Unspecified asthma, uncomplicated; M17.11 Unilateral primary osteoarthritis, right knee; F31.9 Bipolar disorder, unspecified; S80.01XA Contusion of right knee, initial encounter; W18.00XA Striking against unspecified object with subsequent fall, initial encounter; Y93.89 Activity, other specified; E78.5 Hyperlipidemia, unspecified; Y92.811 Bus as the place of occurrence of the external cause; Y99.8 Other external cause status; I10 Essential (primary) hypertension; D72.819 Decreased white blood cell count, unspecified; Z87.891 Personal history of nicotine dependence; Z86.73 Personal history of transient ischemic attack (TIA), and cerebral infarction without residual deficits; Z85.3 Personal history of malignant neoplasm of breast
CPT/HCPCS: 36415; 71045; 78452; 80048; 80053; 80076; 83735; 84100; 84443; 84484; 84550; 85007; 85025; 86703; 86705; 86709; 86803; 87081; 87340; 93005; 93017; 93306; 96374; 99285; J2785